=== PATIENT | female | born 1945 | race Caucasian/White ===

== ENCOUNTER 2022-02-19 14:38 | Emergency (ER) | payer OTHER ==
[2022-02-19 16:48] LABS: Absolute Lymphocytes (CBC) 1.3 K/uL (0.7-4.9); Hematocrit 35.8 % (36.0-45.0); Lymphocytes % 36.3 % (15.3-44.8); MCV 96.7 fL (80-100); MPV 8.6 fL (7.6-11.3)
[2022-02-19 17:05] LABS: Bilirubin Direct 0.1 mg/dL (0-0.2); Bilirubin Total 0.2 mg/dL (0.2-1.0); Potassium 3.9 mmol/L (3.5-5.1); Protein, Total 6.9 g/dL (6.4-8.2); Troponin High Sensitivity 20.8 pg/mL (<58.9)
[2022-02-19 17:09] LABS: Urine Blood Negative (Negative); Urine Glucose 3+ (Negative); Urine Protein 2+ (Negative); Urine Specific Gravity 1.015 (1.005-1.030); Urine pH 5.5 (5.0-7.0)
[2022-02-19 17:26] LABS: Urine Bacteria None Seen /HPF (<20); Urine Mucus Slight /HPF (None Seen); Urine RBC <5 /HPF (None Seen)
[2022-02-19] MEDS ORDERED: NA CHLORIDE 0.9% 1,000 ML ONE (17:37)
[2022-02-19] MEDS ORDERED: INSULIN -REGULAR HUMAN 50 UNIT/0.5 ML ML ONE (17:37)
--- NOTE | 2022-02-19 18:01 | RAD REPORT ---
EXAM DESCRIPTION: RAD - Chest Single View - 02/19/2022 5:22 pm CLINICAL HISTORY: weakness COMPARISON: No comparisons FINDINGS: Lines: None. Lungs: No evidence of edema or pneumonia. Pleural: No significant pleural effusions or pneumothorax. Cardiac: The heart size is within normal limits. Mediastinum: Within normal limits. Bones: No acute fractures. Other: None IMPRESSION: No acute cardiopulmonary disease.
--- NOTE | 2022-02-19 18:24 | ER ---
Nurse's Notes [facility] Name: Loulou Spencer Age: 76 yrs Sex: Female : 1945 Arrival Date: 02/19/2022 Time: 14:44 Bed 16 Private MD: Alia Medrano Diagnosis: Hyperglycemia, unspecified Presentation: 02/19 15:16 Chief complaint: Patient states: "I just don't feel good". Pt c/o generalized weakness. aa5 Pt's states "she was just released from another hospital a couple days ago for trouble breathing, the hospital changed all her medications and her doctor said to bring her here to get everything straighten out". Coronavirus screen: Client reports previous positive COVID test result. Ebola Screen: Patient denies travel to an Ebola-affected area in the 21 days before illness onset. Initial Sepsis Screen: Does the patient meet any 2 criteria? HR > 90 bpm. Does the patient have a suspected source of infection? No. Patient's initial sepsis screen is negative. Risk Assessment: Do you want to hurt yourself or someone else? Patient reports no desire to harm self or others. Onset of symptoms was February 2022. 15:16 Acuity: EVY 3 aa5 15:16 Method Of Arrival: Wheelchair aa5 Historical: - Allergies: 15:22 Sulfa (Sulfonamide Antibiotics); aa5 - PMHx: 15:22 Diabetes mellitus; Hypertensive disorder; Neuropathy; aa5 - Immunization history:: Adult Immunizations unknown. - Social history:: Smoking status: Patient denies any tobacco usage or history of. Assessment: 16:00 General: Appears uncomfortable, Behavior is anxious. Pain: Denies pain. mb9 16:00 Neuro: Ness Agitation-Sedation Scale (RASS): 0 - Alert and Calm Level of mb9 Consciousness is awake, alert, obeys commands, Oriented to person, place, time, situation, Appropriate for age. Neuro: Reports weakness. Cardiovascular: Heart tones S1 S2 present Rhythm is regular. Respiratory: Airway is patent Respiratory effort is even, unlabored, Respiratory pattern is regular, symmetrical, Breath sounds are clear bilaterally. GI: Abdomen is flat, non-distended. : No signs and/or symptoms were reported regarding the genitourinary system. EENT: No signs and/or symptoms were reported regarding the EENT system. Derm: Skin is pink, warm \\T\\ dry. Musculoskeletal: Capillary refill < 3 seconds, is brisk, Range of motion: intact in all extremities. 17:10 Reassessment: No changes from previously documented assessment. Patient and/or family mb9 updated on plan of care and expected duration. Pain level reassessed. Patient is alert, oriented x 3, equal unlabored respirations, skin warm/dry/pink. 18:24 Reassessment: No changes from previously documented assessment. Patient and/or family mb9 updated on plan of care and expected duration. Pain level reassessed. Patient is alert, oriented x 3, equal unlabored respirations, skin warm/dry/pink. 18:50 Reassessment: Patient denies pain at this time. Patient states feeling better. Patient mb9 states symptoms have improved. Vital Signs: 15:16 BP 153 / 49; Pulse 92; Resp 20 S; Temp 98.2(TE); Pulse Ox 95% on R/A; Weight 113.4 kg aa5 (R); Height 5 ft. 4 in. (162.56 cm) (R); 17:10 BP 158 / 52; Pulse 91; Resp 16; Pulse Ox 96% on R/A; Pain 0/10; mb9 17:45 BP 192 / 72; Pulse 97; Resp 16; Pulse Ox 96% on R/A; mb9 18:50 BP 150 / 52; mb9 15:16 Body Mass Index 42.91 (113.40 kg, 162.56 cm) aa5 ED Course: 14:44 Patient arrived in ED. am2 14:45 Alia Medrano MD is Private Physician. am2 15:16 Arm band placed on. aa5 15:22 Triage completed. aa5 15:35 Placed in gown. Bed in low position. Call light in reach. Side rails up X 1. Client mb9 placed on continuous cardiac and pulse oximetry monitoring. NIBP monitoring applied. ekg monitor on. Door closed. Noise minimized. Warm blanket given. 16:00 Cyril Jennings MD is Attending Physician. sp3 16:22 Vidya Vegas RN is Primary Nurse. mb9 16:45 Inserted saline lock: 22 gauge in left antecubital area, using aseptic technique. Blood mb9 collected. 17:00 EKG done, by ED staff, reviewed by Cyril Jennings MD. mb9 17:24 XRAY Chest (1 view) In Process Unspecified. EDMS 18:51 IV discontinued, intact, bleeding controlled, No redness/swelling at site. Pressure mb9 dressing applied. Administered Medications: 17:38 Drug: Insulin Regular Human 10 units {Co-Signature: [email or web address] (Nereida Morse RN).} Route: IVP; mb9 Site: left antecubital; 17:51 Follow up: Response: No adverse reaction mb9 17:46 Drug: NS 0.9% 1000 ml Route: IV; Rate: 1 bolus; Site: left antecubital; mb9 Point of Care Testing: Blood Glucose: 15:22 Blood Glucose: 388 mg/dL; aa5 Ranges: Outcome: 18:24 Discharge ordered by . sp3 18:50 Discharged to home via ambulance. mb9 18:50 Condition: stable 18:50 Discharge instructions given to patient, Instructed on discharge instructions, follow up and referral plans. Demonstrated understanding of instructions, follow-up care. 18:51 Patient left the ED. mb9 Signatures: Dispatcher [employer] EDMS Kierra Pate RN RN aa5 Shantell Vinson am2 Cyril Jennings MD MD sp3 Vidya Vegas, RN RN mb9 Nereida Morse RN jh5 Corrections: (The following items were deleted from the chart) 15:24 15:16 Chief complaint: Patient states: "I just don't feel good". Pt c/o generalized aa5 weakness. Pt's states "she was just released from another hospital a couple days ago for trouble breathing" aa5 17:32 14:40 Placed in gown. Bed in low position. Call light in reach. Side rails up X 1. mb9 mb9 17:32 14:40 Client placed on continuous cardiac and pulse oximetry monitoring. NIBP mb9 monitoring applied. ekg monitor on. mb9 17:32 14:40 Door closed. Noise minimized. Warm blanket given. mb9 mb9
--- NOTE | 2022-02-19 18:24 | EDPHYS ---
Physician Documentation [facility] Name: Loulou Spencer Age: 76 yrs Sex: Female : 1945 Arrival Date: 02/19/2022 Time: 14:44 Bed 16 Private MD: Alia Medrano ED Physician Cyril Jennings HPI: 02/19 16:33 This 76 yrs old Female presents to ER via Wheelchair with complaints of blood sugar sp3 problem, General Weakness. 16:33 76-year-old female with history of hypertension, diabetes, recent and current COVID-19 sp3 infection presents referred by her nurse practitioner for "blood sugar and diabetes check" after blood sugar levels greater than 300 at home. Patient was recently admitted to [facility] for respiratory symptoms and discharged 2 days ago. She states that they may have changed her diabetes medications. Her only complaint now is generalized weakness and "not feeling well". She denies current fever, headache, neck pain, chest pain, shortness of breath, abdominal pain, nausea, vomiting, diarrhea, syncope, focal neurodeficit, or any other aspect of ROS at this time.. Historical: - Allergies: 15:22 Sulfa (Sulfonamide Antibiotics); aa5 - PMHx: 15:22 Diabetes mellitus; Hypertensive disorder; Neuropathy; aa5 - Immunization history:: Adult Immunizations unknown. - Social history:: Smoking status: Patient denies any tobacco usage or history of. ROS: 16:36 Constitutional: Negative for fever, chills, and weight loss, Eyes: Negative for injury, sp3 pain, redness, and discharge, ENT: Negative for injury, pain, and discharge, Cardiovascular: Negative for chest pain, palpitations, and edema, Respiratory: Negative for shortness of breath, cough, wheezing, and pleuritic chest pain, Abdomen/GI: Negative for abdominal pain, nausea, vomiting, diarrhea, and constipation, MS/Extremity: Negative for injury and deformity, Skin: Negative for injury, rash, and discoloration, Psych: Negative for depression, anxiety, suicide ideation, homicidal ideation, and hallucinations, Allergy/Immunology: Negative for hives, rash, and allergies, Endocrine: Negative for neck swelling, polydipsia, polyuria, polyphagia, and marked weight changes. 16:36 All other systems are negative. Exam: 16:36 Constitutional: This is a well developed, well nourished patient who is awake, alert, sp3 and in no acute distress. Head/Face: Normocephalic, atraumatic. Eyes: Pupils equal round and reactive to light, extra-ocular motions intact. Lids and lashes normal. Conjunctiva and sclera are non-icteric and not injected. Cornea within normal limits. Periorbital areas with no swelling, redness, or edema. Neck: Trachea midline, no thyromegaly or masses palpated, and no cervical lymphadenopathy. Supple, full range of motion without nuchal rigidity, or vertebral point tenderness. No Meningismus. Chest/axilla: Normal chest wall appearance and motion. Nontender with no deformity. No lesions are appreciated. Cardiovascular: Regular rate and rhythm with a normal S1 and S2. No gallops, murmurs, or rubs. Normal PMI, no JVD. No pulse deficits. Respiratory: Lungs have equal breath sounds bilaterally, clear to auscultation and percussion. No rales, rhonchi or wheezes noted. No increased work of breathing, no retractions or nasal flaring. Abdomen/GI: Soft, non-tender, with normal bowel sounds. No distension or tympany. No guarding or rebound. No evidence of tenderness throughout. Skin: Warm, dry with normal turgor. Normal color with no rashes, no lesions, and no evidence of cellulitis. MS/ Extremity: Pulses equal, no cyanosis. Neurovascular intact. Full, normal range of motion. 16:36 Neuro: Normal neurological exam. Patient has mild shaking from time to time. She appears overall fatigued but has no focal neurodeficit.. 17:29 ECG was reviewed by the Attending Physician. Demonstrates normal sinus rhythm at 87 bpm sp3 normal intervals, nonspecific left-sided fascicular block, nonspecific diffuse ST/T changes without evidence of acute ischemia. QTC is noted to be 490 Vital Signs: 15:16 BP 153 / 49; Pulse 92; Resp 20 S; Temp 98.2(TE); Pulse Ox 95% on R/A; Weight 113.4 kg aa5 (R); Height 5 ft. 4 in. (162.56 cm) (R); 17:10 BP 158 / 52; Pulse 91; Resp 16; Pulse Ox 96% on R/A; Pain 0/10; mb9 17:45 BP 192 / 72; Pulse 97; Resp 16; Pulse Ox 96% on R/A; mb9 18:50 BP 150 / 52; mb9 15:16 Body Mass Index 42.91 (113.40 kg, 162.56 cm) aa5 MDM: 16:29 Patient medically screened. sp3 16:37 Data reviewed: vital signs, nurses notes, lab test result(s), EKG, radiologic studies. sp3 ED course: 76-year-old female with hyperglycemia and generalized weakness. Differential diagnosis includes hypoglycemia, dehydration, DKA, infectious process leading to metabolic derangement including glucose, ACS, pneumonia, UTI, continued COVID-19 symptoms, secondary bacterial infection, among others. We will cast a broad net including chest x-ray, laboratory values, EKG, urine analysis. Disposition pending work-up and final diagnosis as well as patient course. Possible admission as noted.. 18:23 ED course: Sugar down to 247 and will continue to go down his insulin continues to take sp3 effect along with IV fluids. Patient will be safely discharged once IV fluids are complete.. 02/19 15:33 Order name: Glucose, Ancillary Testing; Complete Time: 17:30 EDAK 02/19 16:07 Order name: Basic Metabolic Panel; Complete Time: 17:30 3 02/19 16:07 Order name: CBC with Diff; Complete Time: 17:30 3 02/19 16:07 Order name: LFT's; Complete Time: 17:30 [facility] 02/19 16:07 Order name: Magnesium; Complete Time: 17:30 [facility] 02/19 16:07 Order name: Troponin HS; Complete Time: 17:30 3 02/19 16:07 Order name: XRAY Chest (1 view); Complete Time: 18:18 3 02/19 16:07 Order name: EKG; Complete Time: 16:08 3 02/19 16:07 Order name: Cardiac monitoring; Complete Time: 16:22 3 02/19 16:07 Order name: Urine Microscopic Only; Complete Time: 17:30 3 02/19 17:09 Order name: Urine Dipstick-Ancillary; Complete Time: 17:30 EDMS 02/19 18:34 Order name: Glucose, Ancillary Testing EDAK 02/19 16:07 Order name: EKG - Nurse/Tech; Complete Time: 17:12 sp3 02/19 16:07 Order name: IV Saline Lock; Complete Time: 17:12 sp3 02/19 16:07 Order name: Labs collected and sent; Complete Time: 17:12 sp3 02/19 16:07 Order name: O2 Per Protocol; Complete Time: 16:22 sp3 02/19 16:07 Order name: O2 Sat Monitoring; Complete Time: 16:22 sp3 02/19 16:07 Order name: Urine Dipstick-Ancillary (obtain specimen); Complete Time: 17:12 sp3 Administered Medications: 17:38 Drug: Insulin Regular Human 10 units {Co-Signature: [email or web address] (Nereida Morse RN).} Route: IVP; 9 Site: left antecubital; 17:51 Follow up: Response: No adverse reaction [facility] 17:46 Drug: NS 0.9% 1000 ml Route: IV; Rate: 1 bolus; Site: left antecubital; 9 Point of Care Testing: Blood Glucose: 15:22 Blood Glucose: 388 mg/dL; aa5 Ranges: Critical Glucose Levels:Adult <50 mg/dl or >400 mg/dl <40 mg/dl or >180 mg/dl Disposition Summary: 02/19/22 18:24 Discharge Ordered Location: Home sp3 Condition: Stable sp3 Diagnosis - Hyperglycemia, unspecified sp3 Followup: sp3 - With: Private Physician - When: Upon discharge from the Emergency Department - Reason: Further diagnostic work-up Discharge Instructions: - Discharge Summary Sheet sp3 - Hyperglycemia sp3 Forms: - Medication Reconciliation Form sp3 - Thank You Letter sp3 - Antibiotic Education sp3 - Prescription Opioid Use sp3 Signatures: Dispatcher [employer] Kierra Rios, RN RN aa5 Cyril Jennings MD MD sp3 Gem Porter PA-C PAVidya Bae RN RN mb9 Nereida Morse RN jh5
[2022-02-19 19:04] VITALS: TEMP 98.2
[2022-02-19 19:10] VITALS: O2SAT 96
[2022-02-19 19:16] VITALS: BP 150/52
--- NOTE | 2022-02-20 14:23 | EKG ---
Test Date: 2022-02-19 Test Time: 17:00:29 Paper Sales Manager: MB MEASUREMENT RESULTS: Intervals: Rate: 87 SD: 152 QRSD: 118 QT: 408 QTc: 490 [place]: P: 63 SD: 152 QRS: -81 T: 44 INTERPRETIVE STATEMENTS: Normal sinus rhythm Pulmonary disease pattern Right bundle branch block Left anterior fascicular block Bifascicular block Voltage criteria for left ventricular hypertrophy Abnormal ECG Compared to ECG 11/02/1991 08:24:00 Right bundle-branch block now present Left anterior fascicular block now present Bifascicular block now present Left ventricular hypertrophy now present Electronically Signed On 02-20-22 14:21:20 CORRECTIVE THERAPY AIDE TEACHER by Merrick Slaughter
== END 2022-02-19 18:51 | disposition home or self-care (01) ==
LOC: ER 14:38
DX: E11.65 Type 2 diabetes mellitus with hyperglycemia (principal); I10 Essential (primary) hypertension; Z88.2 Allergy status to sulfonamides
CPT/HCPCS: 93005; 85025; 80048; 36415; 83735; 82947 ×2; 80076; 84484; 71045; 96374; 99284; J1815; J7030; 81003; 81015

== ENCOUNTER 2022-03-21 10:28 | Emergency (ER) | payer OTHER ==
[2022-03-21 11:36] LABS: Absolute Lymphocytes (CBC) 1.4 K/uL (0.7-4.9); Hematocrit 36.5 % (36.0-45.0); Lymphocytes % 26.2 % (15.3-44.8); MCV 97.3 fL (80-100); MPV 8.9 fL (7.6-11.3); Protime INR 0.96; RBC Red Blood Cell Count 3.75 M/uL (3.86-4.86)
[2022-03-21 11:55] LABS: Albumin 3.1 g/dL (3.4-5.0); Bilirubin Direct 0.1 mg/dL (0-0.2); Bilirubin Total 0.3 mg/dL (0.2-1.0); Magnesium 1.7 mg/dL (1.6-2.4); Potassium 3.6 mmol/L (3.5-5.1); Protein, Total 6.8 g/dL (6.4-8.2); Troponin High Sensitivity 29.2 pg/mL (<58.9)
[2022-03-21 12:44] LABS: SARS-COV-2 RT PCR POSITIVE (NEGATIVE)
--- NOTE | 2022-03-21 12:44 | RAD REPORT ---
EXAM DESCRIPTION: Ines Single View03/21/2022 12:18 pm CLINICAL HISTORY: Shortness of breath COMPARISON: February 2022 FINDINGS: The lungs appear clear of acute infiltrate. The heart is normal size IMPRESSION: No acute abnormalities displayed
--- NOTE | 2022-03-21 12:46 | RAD REPORT ---
EXAM DESCRIPTION: CT - Chest For Pe Angio - 03/21/2022 12:25 pm CLINICAL HISTORY: Chest pain COMPARISON: 2017 TECHNIQUE: Dynamically enhanced axial 3 mm thick images of the chest were obtained during administra tion of 100 mL Isovue 370 IV contrast. Coronal and oblique reconstruction images were generated and r eviewed. Exam utilizes a protocol for optimal evaluation of pulmonary arterial tree. Maximum intensity projections 3D imaging was utilized All CT scans are performed using dose optimization technique as appropriate and may include automated exposure control or mA/KV adjustment according to patient size. FINDINGS: A pulmonary embolus is not seen. A thoracic aortic aneurysm is not noted. A pleural effusion is not seen. A pericardial effusion is not seen. A lung consolidation is not present. Calcified lung granulomas are present IMPRESSION: Negative for a pulmonary embolism.
--- NOTE | 2022-03-21 13:21 | EDPHYS ---
Physician Documentation [facility] Name: Loulou Spencer Age: 76 yrs Sex: Female : 1945 Arrival Date: 03/21/2022 Time: 10:31 Bed 8 Private MD: Alia Medrano ED Physician Nestor Flores HPI: 03/21 10:52 This 76 yrs old Female presents to ER via Ambulatory with complaints of Chest Pain, jmm Shortness Of Breath, Hand shaking. 10:52 The patient or guardian reports cough. Onset: The symptoms/episode began/occurred jmm gradually, last night. Modifying factors: The symptoms are alleviated by nothing. the symptoms are aggravated by nothing. Associated signs and symptoms: Pertinent positives: chest pain. This is a 76-year-old female with history diabetes mellitus, hypertension, hyperlipidemia the presents emerged part with complaints of body aches, cough beginning last night. Patient states also having chest pain. Denies any shortness of breath, vomiting.. Historical: - Allergies: 10:49 Sulfa (Sulfonamide Antibiotics); aa5 - PMHx: 10:49 diabetes mellitus; Hypertensive disorder; neuropathy; Hypercholesterolemia; aa5 - Immunization history:: Adult Immunizations up to date. - Social history:: Smoking status: Patient denies any tobacco usage or history of. ROS: 10:52 Constitutional: Positive for body aches. jmm 10:52 Respiratory: Positive for cough. 10:52 All other systems are negative. Exam: 10:52 Constitutional: This is a well developed, well nourished patient who is awake, alert, jmm and in no acute distress. Head/Face: atraumatic. Eyes: EOMI, no conjunctival erythema appreciated ENT: Moist Mucus Membranes Neck: Trachea midline, Supple Chest/axilla: Normal chest wall appearance and motion. Cardiovascular: Regular rate and rhythm. No edema appreciated Respiratory: Normal respirations, no respiratory distress appreciated Abdomen/GI: Non distended Back: Normal ROM Skin: General appearance color normal MS/ Extremity: Moves all extremities, no obvious deformities appreciated, no edema noted to the lower extremities Neuro: Awake and alert Psych: Behavior is normal, Mood is normal, Patient is cooperative and pleasant 12:05 ECG was reviewed by the Attending Physician. [facility] Vital Signs: 10:49 BP 133 / 54; Pulse 89; Resp 20 S; Temp 97.3(TE); Pulse Ox 100% on R/A; Weight 113.4 kg aa5 (R); 11:54 BP 133 / 45; Pulse 88; Resp 18; Pulse Ox 97% ; hb 12:37 BP 143 / 57; Pulse 69; Resp 17; Pulse Ox 98% on R/A; hb MDM: 10:52 Patient medically screened. [facility] 13:19 Data reviewed: vital signs, nurses notes. I considered the following discharge [facility] prescriptions or medication management in the emergency department Medications were administered in the Emergency Department. See MAR. Independent interpretation of the following test(s) in the Emergency Department X-Ray: My interpretation is No infiltrate appreciated. Counseling: I had a detailed discussion with the patient and/or guardian regarding: the historical points, exam findings, and any diagnostic results supporting the discharge/admit diagnosis, lab results, radiology results, the need for outpatient follow up, to return to the emergency department if symptoms worsen or persist or if there are any questions or concerns that arise at home. ED course: Patient is alert nontoxic in appearance in the ED. No signs respiratory distress. Patient advised follow-up PCP and otherwise given strict return precautions. Patient understood agrees plan of care.. 03/21 10:53 Order name: Basic Metabolic Panel; Complete Time: 12:00 [facility] 03/21 10:53 Order name: CBC with Diff; Complete Time: 12:00 [facility] 03/21 10:53 Order name: LFT's; Complete Time: 12:00 [facility] 03/21 10:53 Order name: Magnesium; Complete Time: 12:00 [facility] 03/21 10:53 Order name: NT PRO-BNP; Complete Time: 12:00 [facility] 03/21 10:53 Order name: PT-INR; Complete Time: 11:42 [facility] 03/21 10:53 Order name: Troponin HS; Complete Time: 12:00 [facility] 03/21 10:53 Order name: XRAY Chest (1 view); Complete Time: 12:45 [facility] 03/21 10:53 Order name: EKG; Complete Time: 10:54 [facility] 03/21 10:53 Order name: COVID-19/FLU A+B/RSV; Complete Time: 12:45 [facility] 03/21 10:53 Order name: Lactate w/ 2H reflex if indic.; Complete Time: 12:00 [facility] 03/21 10:53 Order name: Blood Culture Adult (2) [facility] 03/21 12:00 Order name: CT Chest For PE Angio; Complete Time: 12:50 [facility] 03/21 10:53 Order name: Cardiac monitoring; Complete Time: 11:57 [facility] 03/21 10:53 Order name: EKG - Nurse/Tech; Complete Time: 12:16 [facility] 03/21 10:53 Order name: IV Saline Lock; Complete Time: 11:57 [facility] 03/21 10:53 Order name: Labs collected and sent; Complete Time: :57 [facility] 03/21 10:53 Order name: O2 Per Protocol; Complete Time: :57 [facility] 03/21 10:53 Order name: O2 Sat Monitoring; Complete Time: :57 [facility] EC:05 HI interval is normal. QRS interval is normal. QT interval is normal. T waves are jmm Inverted in leads III, V1. No ST changes noted. Reviewed by me. Administered Medications: 13:46 Drug: Insulin Regular Human 10 units {Co-Signature: ll1 (Radha Marroquin RN).} Route: IVP; Site: Other; Disposition: 17:48 Co-signature as Attending Physician, Nestor Flores MD I reviewed the patient's care rt provided by the Advanced Practice Provider and agree with the diagnosis and treatment plan. Disposition Summary: 03/21/22 13:21 Discharge Ordered Location: Home [facility] Condition: Stable [facility] Diagnosis - Coronavirus infection, unspecified [facility] Followup: [facility] - With: Alia Medrano MD - When: 2 - 3 days - Reason: Recheck today's complaints, Continuance of care, Re-evaluation by your physician Discharge Instructions: - Discharge Summary Sheet [facility] - COVID-19 [facility] Forms: - Medication Reconciliation Form [facility] - Thank You Letter [facility] - Antibiotic Education [facility] - Prescription Opioid Use [facility] Prescriptions: - albuterol sulfate 90 mcg/actuation Inhalation HFA aerosol inhaler - inhale 2 puff by INHALATION route every 4 hours; 1 Pump; Refills: 0, Product [facility] Selection Permitted Signatures: Dispatcher [employer] EDDavonte Estrada PA PA [facility] Kierra Pate, RN RN aa5 Barbara Yepez RN RN hb Nestor Flores MD MD rt Radha Marroquin RN ll1
--- NOTE | 2022-03-21 13:21 | ER ---
Nurse's Notes [facility] Name: Loulou Spencer Age: 76 yrs Sex: Female : 1945 Arrival Date: 03/21/2022 Time: 10:31 Bed 8 Private MD: Alia Medrano Diagnosis: Coronavirus infection, unspecified Presentation: 03/21 10:49 Chief complaint: Patient states: cough, SOB, generalized weakness, and chest pain that aa5 began yesterday. Coronavirus screen: cough unrelated to allergies, shortness of breath. Ebola Screen: Patient denies travel to an Ebola-affected area in the 21 days before illness onset. Initial Sepsis Screen: Does the patient meet any 2 criteria? No. Patient's initial sepsis screen is negative. Does the patient have a suspected source of infection? No. Patient's initial sepsis screen is negative. Risk Assessment: Do you want to hurt yourself or someone else? Patient reports no desire to harm self or others. Onset of symptoms was March 2022. 10:49 Method Of Arrival: Ambulatory aa5 10:49 Acuity: EVY 3 aa5 Historical: - Allergies: 10:49 Sulfa (Sulfonamide Antibiotics); aa5 - PMHx: 10:49 diabetes mellitus; Hypertensive disorder; neuropathy; Hypercholesterolemia; aa5 - Immunization history:: Adult Immunizations up to date. - Social history:: Smoking status: Patient denies any tobacco usage or history of. Screenin:54 [facility] ED Fall Risk Assessment (Adult) Score/Fall Risk Level 3 or more points = High hb Risk Oriented to surroundings, Maintained a safe environment, Educated pt \T\ family on fall prevention, incl call for assistance when getting out of bed. Abuse screen: Denies threats or abuse. Denies injuries from another. Nutritional screening: No deficits noted. Tuberculosis screening: No symptoms or risk factors identified. Assessment: 11:54 General: Appears in no apparent distress. Behavior is calm, cooperative. Pain: Denies hb pain. Neuro: Level of Consciousness is awake, alert, obeys commands, Oriented to person, place, time, situation. Cardiovascular: Patient's skin is warm and dry. Respiratory: Respiratory effort is even, unlabored, Respiratory pattern is regular, symmetrical. GI: No signs and/or symptoms were reported involving the gastrointestinal system. : No signs and/or symptoms were reported regarding the genitourinary system. EENT: No signs and/or symptoms were reported regarding the EENT system. Derm: Skin is pink, warm \T\ dry. Musculoskeletal: No signs and/or symptoms reported regarding the musculoskeletal system. 13:00 Reassessment: Patient appears in no apparent distress at this time. Patient and/or hb family updated on plan of care and expected duration. Pain level reassessed. Patient is alert, oriented x 3, equal unlabored respirations, skin warm/dry/pink. Vital Signs: 10:49 BP 133 / 54; Pulse 89; Resp 20 S; Temp 97.3(TE); Pulse Ox 100% on R/A; Weight 113.4 kg aa5 (R); 11:54 BP 133 / 45; Pulse 88; Resp 18; Pulse Ox 97% ; hb 12:37 BP 143 / 57; Pulse 69; Resp 17; Pulse Ox 98% on R/A; hb ED Course: 10:31 Patient arrived in ED. mr 10:31 Alia Medrano MD is Private Physician. mr 10:32 Davonte Kwan PA is PHCP. jmm 10:32 Nestor Flores MD is Attending Physician. jmm 10:49 Arm band placed on. aa5 10:50 Triage completed. aa5 11:04 Barbara Yepez, KATELYN is Primary Nurse. hb 11:22 Inserted saline lock: 20 gauge in left antecubital area, using aseptic technique. Blood hb collected. 12:20 XRAY Chest (1 view) In Process Unspecified. EDMS 12:27 CT Chest For PE Angio In Process Unspecified. EDMS 13:00 Patient has correct armband on for positive identification. hb 13:00 No provider procedures requiring assistance completed. IV discontinued, intact, hb bleeding controlled, No redness/swelling at site. 13:20 Alia Medrano MD is Referral Physician. [facility] Administered Medications: 13:46 Drug: Insulin Regular Human 10 units {Co-Signature: ll1 (Radha Marroquin RN).} Route: IVP; hb Site: Other; Medication: 13:00 VIS not applicable for this client. hb Outcome: 13:00 Discharged to home via wheelchair, with family. hb 13:00 Condition: stable 13:00 Discharge instructions given to patient, Instructed on discharge instructions, follow up and referral plans. medication usage, Demonstrated understanding of instructions, follow-up care, medications, Prescriptions given X 1. 13:21 Discharge ordered by MD. mckeon 13:48 Patient left the ED. hb Signatures: Dispatcher [employer] EDMS Davonte Kwan PA PA jmm Rivera, Mary mr RioKierra, RN RN aa5 Barbara Yepez RN RN Radha Marroquin RN ll1
[2022-03-21] MEDS ORDERED: INSULIN -REGULAR HUMAN 50 UNIT/0.5 ML ML ONE (13:43)
[2022-03-21 13:53] VITALS: TEMP 97.3
[2022-03-21 13:55] VITALS: BP 143/57; O2SAT 98
== END 2022-03-21 13:48 | disposition home or self-care (01) ==
LOC: ER 10:28
DX: U07.1 COVID-19 (principal); I10 Essential (primary) hypertension; E11.9 Type 2 diabetes mellitus without complications; Z88.2 Allergy status to sulfonamides
CPT/HCPCS: 87040 ×2; 85025; 80048; 36415; 83735; 85610; 80076; 83605; 84484; 83880; 0241U; 71275; 71045; 96374; 99284; Q9967; J1815; 93005

== ENCOUNTER 2022-05-26 09:05 | Inpatient (IN) | payer OTHER ==
--- OUTSIDE RECORDS SUMMARY | 2022-05-26 09:44 | XMS REPORT | Continuity of Care Document ---
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 (disorder) (disorder) Active 06/05/2015 Problem 05/17/2022 [facility] Amnesia Amnesia Problem Active 2022-05-17 Me moria (finding) (finding) 12:54:04 l Active Noah Problem 05/17/2022 [facility] 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 12:54:04 l s s [place] (disorder) (disorder) Active Problem 05/17/2022 [facility] Diabetes Diabetes Problem Active 2022-05-17 Memoria mellitus mellitus 12:54:04 l (disorder) (disorder) He rmann Active Problem 05/17/2022 [facility] Dizziness Dizziness Problem Active 2022-05-17 Memoria (finding) (finding) 12:54:04 l Active Noah Problem 05/17/2022 [facility] Dysarthria Dysarthri Problem Active 2022-05-17 Memoria (finding) a 12:54:04 l (finding) Naoh Active Problem 05/17/2022 [facility] Hyperchole Hyperchol Problem Active 2022-05-17 Memoria sterolemia esterolemi 12:54:04 l (disorder) a Oscar n (disorder) Active Problem 05/17/2022 [facility] Hypertensi Hypertens Problem Active 2022-05-17 Memoria ve davi 12:54:04 l disorder, disorder, Herm promise systemic systemic arterial arterial (disorder) (disorder) Active Problem 05/17/2022 [facility] Morbid Morbid Problem Active 2022-05-17 Robert cheli obesity obesity 12:54:04 l (disorder) (disorder) He rmann Active Problem 05/17/2022 [facility] Neuropathy Problem Active 2022-05-17 M emoria (disorder) Neuropathy 12:54:04 l (disorder) Oscar n Active Problem 05/17/2022 [facility] Orthostati Orthostat Problem Active 2022-05-17 Memoria c ic 12:54:04 l hypotensio hypotensio He rmann n n (disorder) (disorder) Active Problem 05/17/2022 [facility] Tremor Tremor Problem Active 2022-05-17 Rboert cheli (finding) (finding) 12:54:04 l Active [place] Problem 05/17/2022 [facility] Allergies, Adverse Reactions, Alerts Allergy Allergy Status Severity Reaction(s) Onset Inactive Treating Comm ents Source Name Type Date Date Clinician sulfa sulfa Active Memoria drugs drugs [facility] Social History Smoking Status Start Date Stop Date Source Tobacco smoking status [facility] Medications Ordered Filled Start Stop Current Ordering Indication Dosage Frequency Signature Comments Components Source Medication Medication Date Date Medication? Clinician (SIG) Name Name furosemide Yes TAKE 1 Memor ia 20 mg oral 4-05 TABLET BY l tablet 19:42: MOUTH IN Noah 00 THE MORNING AND 1 IN THE EVENING cyclobenzap Yes TAKE 1 Robert cheli rine 5 mg 4-05 TABLET BY l oral tablet 19:42: MOUTH Ally 00 THREE TIMES DAILY NEEDED FOR MUSCLE SPASMS FOR UP TO 10 DAYS furosemide Yes TAKE 1 Memor ia 20 mg oral 4-05 TABLET BY l tablet 19:42: MOUTH IN [place] 00 THE MORNING AND 1 IN THE EVENING cyclobenzap Yes TAKE 1 Robert cheli rine 5 mg 4-05 TABLET BY l oral tablet 19:42: MOUTH Ally nn 00 THREE TIMES DAILY NEEDED FOR MUSCLE SPASMS FOR UP TO 10 DAYS gabapentin Yes See Memoria 600 mg oral 1-03 Instructio l tablet 17:16: ns, 02/10 [place] 00 tab PO BID 90 day, # 90 tab, 1 Refill(s), Pharmacy: [facility], 162.56, cm, 11/13/21 14:00:00 CDT, Height, 111.818, kg, 11/13/21 14:00:00 CDT, Weight gabapentin Yes See Memoria 600 mg oral 1-03 Instructio l tablet 17:16: ns, 02/10 [place] 00 tab PO BID 90 day, # 90 tab, 1 Refill(s), Pharmacy: [facility], 162.56, cm, 11/13/21 14:00:00 CDT, Height, 111.818, kg, 11/13/21 14:00:00 CDT, Weight primidone 2021-02 Yes See Memoria 50 mg oral 1-15 Instructio l tablet 16:45: ns, 3 tab Oscar n 00 PO BID, # 540 tab, 1 Refill(s), Pharmacy: [facility], 162.56, cm, 11/13/21 14:00:00 CDT, Height, 111.818, kg, 11/13/21 14:00:00 CDT, Weight primidone 2021-02 Yes See Memoria 50 mg oral 1-15 Instructio l tablet 16:45: ns, 3 tab Oscar n 00 PO BID, # 540 tab, 1 Refill(s), Pharmacy: [facility], 162.56, cm, 11/13/21 14:00:00 CDT, Height, 111.818, kg, 11/13/21 14:00:00 CDT, Weight hydrochloro 0 Yes TAKE 1 Robert cheli thiazide-lo 8-23 TABLET BY l sartan 12.5 16:07: MOUTH ONCE Noah mg-50 mg 00 DAILY oral tablet hydrochloro 0 Yes TAKE 1 Robert cheli thiazide-lo 8-23 TABLET BY ac rand 12.5 16:07: MOUTH ONCE [place] mg-50 mg 00 DAILY oral tablet primidone 0 Yes See Memoria 50 mg oral 4-06 Instructio l tablet 17:17: ns, 3 tab Oscar n 00 PO BID, # 540 tab, 1 Refill(s), Pharmacy: [facility], 160.02, cm, 05/15/21 11:51:00 CDT, Height, 115.966, kg, 05/15/21 11:51:00 CDT, Weight primidone 0 Yes See Memoria 50 mg oral 4-06 Instructio l tablet 17:17: ns, 3 tab Oscar n 00 PO BID, # 540 tab, 1 Refill(s), Pharmacy: [facility], 160.02, cm, 05/15/21 11:51:00 CDT, Height, 115.966, kg, 05/15/21 11:51:00 CDT, Weight Vitamin C 2021-0 Yes Daily, 0 Robert cheli 1-06 Refill(s) l 16:44: [place] 00 B-Complex 2021-0 Yes PO, Daily, Me moria 50 oral 1-06 0 l tablet 16:44: Refill(s) Oscar n 00 Zinc 2021-0 Yes 140 mg, Memoria 1-06 PO, Daily, l 16:44: 0 Noah 00 Refill(s) Vitamin C 2021-0 Yes Daily, 0 Robert cheli 1-06 Refill(s) l 16:44: [place] 00 B-Complex 2021-0 Yes PO, Daily, Me moria 50 oral 1-06 0 l tablet 16:44: Refill(s) Oscar n 00 Zinc 2021-0 Yes 140 mg, Memoria 1-06 PO, Daily, l 16:44: 0 Noah 00 Refill(s) D3 2021-0 Yes PO, Daily, Memoria 1-06 0 l 16:43: Refill(s) [place] 00 D3 2021-0 Yes PO, Daily, Memoria 1-06 0 l 16:43: Refill(s) primidone 2020-0 Yes 0 Memoria 50 mg oral 7-06 Refill(s) l tablet 15:26: atorvastati 2020-0 Yes 0 Memori a n 40 mg 7-06 Refill(s) l oral tablet 15:26: Oscar n primidone 2020-0 Yes 0 Memoria 50 mg oral 7-06 Refill(s) l tablet 15:26: atorvastati 2020-0 Yes 0 Memori a n 40 mg 7-06 Refill(s) l oral tablet 15:26: Oscar n gabapentin 2020-0 Yes = 1 tab, Mem oria 600 MG Oral 5-06 PO, BID, # l Tablet 16:04: 60 tab, 3 Oscar n 00 Refill(s), Pharmacy: [facility], 162.56, cm, 02/14/20 14:47:00 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, Height, 117.727, kg, 05/17/20 11:13:00 CDT, Weight gabapentin 2020-0 Yes = 1 tab, Mem oria 600 MG Oral 5-06 PO, BID, # l Tablet 16:04: 60 tab, 3 Oscar n 00 Refill(s), Pharmacy: [facility], 162.56, cm, 02/14/20 14:47:00 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, Height, 117.727, kg, 05/17/20 11:13:00 CDT, Weight Cephalexin 2020-0 Yes 500 mg, Robert cheli 5-06 PO, Daily, l 15:48: 0 Refill(s) Cephalexin 2020-0 Yes 500 mg, Robert cheli 5-06 PO, Daily, l 15:48: 0 Refill(s) diclofenac 2020-0 Yes 50 mg, PO, M emoria 5-06 BID, 0 l 15:47: Refill(s) Diclofenac 2020-0 Yes 50 mg, PO, M emoria 5-06 BID, 0 l 15:47: Refill(s) diclofenac 2020-0 Yes 50 mg, PO, M emoria 5-06 BID, 0 l 15:47: Refill(s) Diclofenac Yes 50 mg, PO, M emoria 5-06 BID, 0 l 15:47: Refill(s) [place] 00 losartan 25 Yes 25 mg = 1 M emoria mg oral 4-08 tab, PO, l tablet 16:32: Daily, # Noah 00 90 tab, 1 Refill(s) losartan 25 Yes 25 mg = 1 M emoria mg oral 4-08 tab, PO, l tablet 16:32: Daily, # [place] 90 tab, 1 Refill(s) Tresiba Yes 30, SUB-Q, Robert cheli FlexTouch 4-08 Daily, 0 l 16:15: Refill(s) [place] Tresiba Yes 30, SUB-Q, Robert cheli FlexTouch 4-08 Daily, 0 l 16:15: Refill(s) gabapentin Yes = 1 tab, Mem oria 600 MG Oral 1-05 PO, TID, # l Tablet 21:54: 90 tab, 2 Oscar n 00 Refill(s), Pharmacy: [id number], 162.56, cm, 02/14/20 14:47:00 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, Height, 115.455, kg, 02/14/20 14:47:00 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, Weight primidone Yes 100 mg = 2 Me moria 50 mg oral 1-05 tab, PO, l tablet 21:54: BID, X 90 Oscar n 00 day, # 360 tab, 1 Refill(s), Pharmacy: [facility], 162.56, cm, 02/14/20 14:47:00 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, Height, 115.455, kg, 02/14/20 14:47:00 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, Weight gabapentin Yes = 1 tab, Mem oria 600 MG Oral 1-05 PO, TID, # l Tablet 21:54: 90 tab, 2 Oscar n 00 Refill(s), Pharmacy: [facility], 162.56, cm, 02/14/20 14:47:00 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, Height, 115.455, kg, 02/14/20 14:47:00 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, Weight primidone 2021-0 Yes 100 mg = 2 Me moria 50 mg oral 1-05 tab, PO, l tablet 21:54: BID, X 90 Oscar n 00 day, # 360 tab, 1 Refill(s), Pharmacy: [place] [address], 162.56, cm, 02/14/20 14:47:00 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, Height, 115.455, kg, 02/14/20 14:47:00 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, Weight primidone 2019-02 No See Memoria 50 mg oral 2-03 Instructio l tablet 23:21: ns, TAKE 1 Ally nn 00 TABLET BY MOUTH IN THE MORNING AND 2 TABLETS IN THE EVENING, # 90 tab, 1 Refill(s), Pharmacy: [place] [address], 162.56, cm, 04/27/19 11:23:00 CDT, Height, 119.091, kg, 04/27/19 11:23:00 CDT, Weight primidone 2019-02 No See Memoria 50 mg oral 2-03 Instructio l tablet 23:21: ns, TAKE 1 Ally nn 00 TABLET BY MOUTH IN THE MORNING AND 2 TABLETS IN THE EVENING, # 90 tab, 1 Refill(s), Pharmacy: [place] [address], 162.56, cm, 04/27/19 11:23:00 CDT, Height, 119.091, kg, 04/27/19 11:23:00 CDT, Weight primidone 2018-02 Yes See Memoria 50 mg oral 1-20 Instructio l tablet 17:15: ns, 1 tab Oscar n 07 PO qam 2 po qpm, # 90 tab, 3 Refill(s), Pharmacy: [address] 2018-02 Yes See Memoria 50 mg oral 1-20 Instructio l tablet 17:15: ns, 1 tab Oscar n 07 PO qam 2 po qpm, # 90 tab, 3 Refill(s), Pharmacy: [address] 2018-02 Yes 50 mg = 1 Mem oria 50 mg oral 0-10 tab, PO, l tablet 17:23: BID, # 60 Oscar n 00 tab, 3 Refill(s), Pharmacy: [address] 2018-02 Yes 50 mg = 1 Mem oria 50 mg oral 0-10 tab, PO, l tablet 17:23: BID, # 60 Oscar n 00 tab, 3 Refill(s), Pharmacy: [facility] gabapentin 2017-02 Yes See Memoria 600 MG Oral 2-18 Instructio l Tablet 19:42: ns, TAKE [place] 52 ONE TABLET BY MOUTH THREE TIMES DAILY, # 90 tab, 5 Refill(s), Pharmacy: [facility] gabapentin 2017-02 Yes See Memoria 600 MG Oral 2-18 Instructio l Tablet 19:42: ns, TAKE Noah 52 ONE TABLET BY MOUTH THREE TIMES DAILY, # 90 tab, 5 Refill(s), Pharmacy: [facility] gabapentin No See Memoria 600 MG Oral 7-13 Instructio l Tablet 22:30: ns, # 90 [place] 58 tab, Refill(s) 4, TAKE ONE TABLET BY MOUTH THREE TIMES DAILY, Pharmacy: [facility] gabapentin No See Memoria 600 MG Oral 7-13 Instructio l Tablet 22:30: ns, # 90 [place] 58 tab, Refill(s) 4, TAKE ONE TABLET BY MOUTH THREE TIMES DAILY, Pharmacy: [facility] allopurinol Yes 100 mg = 1 Memoria 100 mg oral 4-14 tab, PO, l tablet 18:38: BID, 0 [place] 00 Refill(s) aspirin Yes 0 Memoria 4-14 Refill(s) l 18:38: [place] 00 DULoxetine Yes 60 mg = 1 Me moria 60 mg oral 4-14 cap, PO, l delayed 18:38: Daily, # Oscar n release 00 30 cap, 0 capsule Refill(s) metFORMIN Yes 1,000 mg = Me moria 1000 mg 4-14 1 tab, PO, l oral tablet 18:38: BID-Meals, Noah 00 # 30 tab, 0 Refill(s) metoprolol Yes 200 mg = 1 M emoria 200 mg oral 4-14 tab, PO, l tablet, 18:38: Daily, # Oscar n extended 00 30 tab, 0 release Refill(s) NovoLOG Yes SUB-Q, Memoria 4-14 TID-Before l 18:38: Meals, 0 Noah 00 Refill(s) pravastatin Yes 40 mg = 1 M emoria 40 mg oral 4-14 tab, PO, l tablet 18:38: Bedtime, # Ally nn 00 30 tab, 0 Refill(s) Singulair 2017 Yes 10 mg = 1 Mem oria 10 mg oral 4-14 tab, PO, l tablet 18:38: Bedtime, # Ally nn 00 30 tab, 0 Refill(s) hydrochloro 2017 Yes 1 tab, PO, Memoria thiazide-li 4-14 Daily, # l sinopril 18:38: 30 tab, 0 Herm promise 12.5 mg-10 00 Refill(s) mg oral tablet allopurinol Yes 100 mg = 1 Memoria 100 mg oral 4-14 tab, PO, l tablet 18:38: BID, 0 Noah 00 Refill(s) aspirin Yes 0 Memoria 4-14 Refill(s) l 18:38: [place] 00 DULoxetine Yes 60 mg = 1 Me moria 60 mg oral 4-14 cap, PO, l delayed 18:38: Daily, # Oscar n release 00 30 cap, 0 capsule Refill(s) metFORMIN Yes 1,000 mg = Me moria 1000 mg 4-14 1 tab, PO, l oral tablet 18:38: BID-Meals, [place] 00 # 30 tab, 0 Refill(s) metoprolol Yes 200 mg = 1 M emoria 200 mg oral 4-14 tab, PO, l tablet, 18:38: Daily, # Oscar n extended 00 30 tab, 0 release Refill(s) NovoLOG 2017 Yes SUB-Q, Memoria 4-14 TID-Before l 18:38: Meals, 0 Noah 00 Refill(s) pravastatin 2017 Yes 40 mg = 1 M emoria 40 mg oral 4-14 tab, PO, l tablet 18:38: Bedtime, # Ally nn 00 30 tab, 0 Refill(s) Singulair Yes 10 mg = 1 Mem oria 10 mg oral 4-14 tab, PO, l tablet 18:38: Bedtime, # Ally nn 00 30 tab, 0 Refill(s) hydrochloro 2017 Yes 1 tab, PO, Memoria thiazide-li 4-14 Daily, # l sinopril 18:38: 30 tab, 0 Herm promise 12.5 mg-10 00 Refill(s) mg oral tablet Vital Signs Vital Name Observation Time Observation Value Comments Source Systolic (mm Hg) 2022-05-14 19:27:00 Robert rial [place] Diastolic (mm Hg) 2022-05-14 19:27:00 Mem orial [place] Heart Rate 2022-05-14 19:27:00 [facility] [place] Height 2022-05-14 19:27:00 5 [ft_i] [facility] [place] Weight 2022-05-14 19:27:00 [facility] [place] BMI Calculated 2022-05-14 19:27:00 Memori al [place] Systolic (mm Hg) 2022-02-13 16:01:00 Robert rial [place] Diastolic (mm Hg) 2022-02-13 16:01:00 Mem orial [place] Heart Rate 2022-02-13 16:01:00 [facility] [place] Height 2022-02-13 16:01:00 5 [ft_i] [facility] Noah Weight 2022-02-13 16:01:00 [facility] [place] BMI Calculated 2022-02-13 16:01:00 Memori al [place] Systolic (mm Hg) 2021-11-13 18:41:00 Robert rial [place] Diastolic (mm Hg) 2021-11-13 18:41:00 Mem orial [place] Heart Rate 2021-11-13 18:41:00 [facility] [place] Respitory Rate 2021-11-13 18:41:00 Memori al [place] Height 2021-11-13 18:41:00 162.56 cm [facility] [place] Weight 2021-11-13 18:41:00 [facility] [place] BMI Calculated 2021-11-13 18:41:00 Memori al [place] BMI Calculated 2021-10-01 15:57:00 Memori al [place] Systolic (mm Hg) 2021-10-01 15:57:00 Robert rial [place] Diastolic (mm Hg) 2021-10-01 15:57:00 Mem orial Noah Heart Rate 2021-10-01 15:57:00 [facility] [place] Respitory Rate 2021-10-01 15:57:00 Memori al [place] Height 2021-10-01 15:57:00 160.02 cm [facility] [place] Weight 2021-10-01 15:57:00 [facility] [place] Systolic (mm Hg) 2021-05-15 16:51:00 Robert rial [place] Diastolic (mm Hg) 2021-05-15 16:51:00 Mem orial Noah Heart Rate 2021-05-15 16:51:00 [facility] [place] Respitory Rate 2021-05-15 16:51:00 Memori al [place] Height 2021-05-15 16:51:00 160.02 cm [facility] [place] Weight 2021-05-15 16:51:00 [facility] Noah BMI Calculated 2021-05-15 16:51:00 Memori al [place] Weight 2021-02-14 16:28:00 [facility] [place] BMI Calculated 2021-02-14 16:28:00 Memori al [place] Systolic (mm Hg) 2021-02-14 16:28:00 Robert rial [place] Diastolic (mm Hg) 2021-02-14 16:28:00 Mem orial [place] Heart Rate 2021-02-14 16:28:00 [facility] Noah Respitory Rate 2021-02-14 16:28:00 Memori al [place] Height 2021-02-14 16:28:00 162.56 cm [facility] [place] Systolic (mm Hg) 2020-08-14 15:13:00 Robert rial [place] Diastolic (mm Hg) 2020-08-14 15:13:00 Mem orial [place] Heart Rate 2020-08-14 15:13:00 [facility] Noah Respitory Rate 2020-08-14 15:13:00 Memori al [place] Height 2020-08-14 15:13:00 162.56 cm [facility] [place] Weight 2020-08-14 15:13:00 [facility] Noah BMI Calculated 2020-08-14 15:13:00 Memori al [place] Systolic (mm Hg) 2020-06-14 15:45:00 Robert rial [place] Diastolic (mm Hg) 2020-06-14 15:45:00 Mem orial Noah Heart Rate 2020-06-14 15:45:00 [facility] [place] Respitory Rate 2020-06-14 15:45:00 Memori al [place] Height 2020-06-14 15:45:00 162.56 cm [facility] [place] Weight 2020-06-14 15:45:00 [facility] [place] BMI Calculated 2020-06-14 15:45:00 Memori al [place] Systolic (mm Hg) 2020-05-17 16:04:00 Robert rial [place] Diastolic (mm Hg) 2020-05-17 16:04:00 Mem orial Noah Heart Rate 2020-05-17 16:04:00 [facility] [place] Respitory Rate 2020-05-17 16:04:00 Memori al [place] Weight 2020-05-17 16:04:00 [facility] [place] Systolic (mm Hg) 2020-02-14 20:47:00 Robert rial [place] Diastolic (mm Hg) 2020-02-14 20:47:00 Mem orial [place] Heart Rate 2020-02-14 20:47:00 [facility] Noah Height 2020-02-14 20:47:00 162.56 cm [facility] [place] Weight 2020-02-14 20:47:00 [facility] [place] BMI Calculated 2020-02-14 20:47:00 Memori al [place] Systolic (mm Hg) 2019-04-27 16:23:00 Robert rial [place] Diastolic (mm Hg) 2019-04-27 16:23:00 Mem orial [place] Heart Rate 2019-04-27 16:23:00 [facility] [place] Respitory Rate 2019-04-27 16:23:00 Memori al [place] Height 2019-04-27 16:23:00 162.56 cm [facility] [place] Weight 2019-04-27 16:23:00 [facility] [place] BMI Calculated 2019-04-27 16:23:00 Memori al [place] Systolic (mm Hg) 2018-12-29 16:53:00 Robert rial [place] Diastolic (mm Hg) 2018-12-29 16:53:00 Mem orial Noah Heart Rate 2018-12-29 16:53:00 [facility] [place] Respitory Rate 2018-12-29 16:53:00 Memori al [place] Height 2018-12-29 16:53:00 160.02 cm [facility] [place] Weight 2018-12-29 16:53:00 [facility] Noah BMI Calculated 2018-12-29 16:53:00 Memori al [place] Systolic (mm Hg) 2018-11-18 16:05:00 Robert rial [place] Diastolic (mm Hg) 2018-11-18 16:05:00 Mem orial Noah Heart Rate 2018-11-18 16:05:00 [facility] [place] Respitory Rate 2018-11-18 16:05:00 Memori al [place] Height 2018-11-18 16:05:00 162.56 cm [facility] [place] Weight 2018-11-18 16:05:00 [facility] [place] BMI Calculated 2018-11-18 16:05:00 Memori al [place] Weight 2018-01-26 19:24:00 [facility] [place] Height 2018-01-26 19:24:00 162.56 cm [facility] BMI Calculated 2018-01-26 19:24:00 Memori al [place] Respitory Rate 2018-01-26 19:24:00 Memori al [place] Heart Rate 2018-01-26 19:24:00 [facility] [place] Systolic (mm Hg) 2018-01-26 19:24:00 Robert rial [place] Diastolic (mm Hg) 2018-01-26 19:24:00 Mem orial Noah Procedures Procedure Date / Time Performed Performing Clinician Sour e Colonoscopy 2016-06-25 05:00:00 [facility] Her [place] Wrist repair [facility] [place] Hysterectomy [facility] [place] Cholecystectomy [facility] [place] Encounters Start End Encounter Admission Attending Care Care Encounter Source Date/Time Date/Time Type Type Clinicians Facility Department ID 2022-09-09 2022-09-09 Outpatient MHIE MHIE [id number] Memoria 13:15:00 13:15:00 23 l [place] 2022-09-09 2022-09-09 Outpatient MHIE MHIE [id number] Memoria 13:15:00 13:15:00 23 l [place] 2022-05-14 2022-05-15 Outpatient MHIE MNA [id number] Memoria 19:30:00 04:59:59 Neurology 22 l Logan [place] 2022-05-14 2022-05-15 Outpatient MHIE MNA [id number] Memoria 19:30:00 04:59:59 Neurology 22 l Logan [place] 2022-05-14 2022-05-14 [id number] 14:30:00 23:59:59 Bigg 22 Hilario 2022-05-14 2022-05-14 Outpatient MHIE MHIE [id number] Memoria 14:30:00 14:30:00 22 l [place] 2022-03-18 2022-03-18 Ambulatory MHIE MNA [id number] Memoria 19:45:00 19:45:00 Pre-Reg Neurology 20 l Nubia Zamora 2022-03-18 2022-03-18 Ambulatory MHIE MNA [id number] Memoria 19:45:00 19:45:00 Pre-Reg Neurology 20 l Nubia Zamora 2022-03-18 2022-03-18 Outpatient MHIE MHIE [id number] Memoria 13:45:00 13:45:00 20 l [place] 2022-03-18 2022-03-18 Outpatient Rober MHMISCHER MHMISCHER [id number] 13:45:00 13:45:00 Bigg 20 Hilario 2022-02-13 2022-02-14 Outpatient MHIE MNA [id number] Memoria 16:00:00 05:59:59 Neurology 21 l Nubia Zamora 2022-02-13 2022-02-14 Outpatient MHIE MNA [id number] Memoria 16:00:00 05:59:59 Neurology 21 l Nubia Zamora 2022-02-13 2022-02-13 Outpatient Rober MHMISCHER MHMISCHER [id number] 10:00:00 23:59:59 Bigg 21 Hilario 2022-02-13 2022-02-13 Outpatient MHIE MHIE [id number] Memoria 10:00:00 10:00:00 21 ac Zamora 2021-11-13 2021-11-14 Outpatient nullFlavo MNA [id number] Memoria 18:45:00 04:59:59 r Neurology 19 l Nubia Zamora 2021-11-13 2021-11-14 Outpatient nullFlavo MNA [id number] Memoria 18:45:00 04:59:59 r Neurology 19 l Nubia Zamora 2021-11-13 2021-11-13 Outpatient Rober MHMISCHER MHMISCHER [id number] 13:45:00 23:59:59 Bigg 19 Hilario 2021-11-13 2021-11-13 Outpatient MHIE MHIE [id number] Memoria 13:45:00 13:45:00 19 ac Zamora 2021-10-01 2021-10-02 Outpatient nullFlavo MNA [id number] Memoria 16:00:00 04:59:59 r Neurology 18 l Nubia Zamora 2021-10-01 2021-10-02 Outpatient nullFlavo MNA [id number] Memoria 16:00:00 04:59:59 r Neurology 18 l Nubia Zamora 2021-10-01 2021-10-01 Outpatient Rober [facility] [id number] 11:00:00 23:59:59 Bigg 18 Hilario 2021-10-01 2021-10-01 Outpatient MHIE IE [id number] Memoria 11:00:00 11:00:00 18 ac Zamora 2021-05-15 2021 Outpatient nullFlavo MNA [id number] Memoria 16:30:00 04:59:59 r Neurology 17 l Nubia Zamora 2021-05-15 2021 Outpatient nullFlavo MNA [id number] Memoria 16:30:00 04:59:59 r Neurology 17 l Nubia Zamora 2021-05-15 2021-05-15 [id number] 11:30:00 23:59:59 Bigg 17 Hilario 2021-05-15 2021-05-15 Outpatient MHIE ZAKI [id number] Memoria 11:30:00 11:30:00 17 ac Zamora 2021-02-14 2021-02-15 Outpatient nullFlavo MNA [id number] Memoria 16:30:00 05:59:59 r Neurology 16 l Nubia Zamora 2021-02-14 2021-02-15 Outpatient nullFlavo MNA [id number] Memoria 16:30:00 05:59:59 r Neurology 16 l Nubia Zamora 2021-02-14 2021-02-14 [facility] [id number] 10:30:00 23:59:59 Bigg 16 Hilario 2021-02-14 2021-02-14 Outpatient MHIE MHIE [id number] Memoria 10:30:00 10:30:00 16 ac Zamora 2020-08-14 2020-08-15 Outpatient nullFlavo MNA [id number] Memoria 15:15:00 04:59:59 r Neurology 15 l Nubia Zamora 2020-08-14 2020-08-15 Outpatient nullFlavo MNA [id number] Memoria 15:15:00 04:59:59 r Neurology 15 l Nubia Zamora 2020-08-14 2020-08-14 Outpatient BIANCA RichterINSCHER MISCHER [id number] 10:15:00 23:59:59 Bigg 15 Hilario 2020-08-14 2020-08-14 Ambulatory nullFlavo MNA [id number] Memoria 18:00:00 18:00:00 Pre-Reg r Neurology 12 l Nubia Zamora 2020-08-14 2020-08-14 Ambulatory nullFlavo MNA [id number] Memoria 18:00:00 18:00:00 Pre-Reg r Neurology 12 l Nubia Zamora 2020-08-14 2020-08-14 Outpatient MHIE MHIE [id number] Memoria 13:00:00 13:00:00 12 ac Zamora 2020-08-14 2020-08-14 [facility] [id number] 13:00:00 13:00:00 Bigg 12 Hilario 2020-08-14 2020-08-14 Outpatient MHIE MHIE [id number] Memoria 10:15:00 10:15:00 15 ac Zamora 2020-06-14 2020-06-15 Outpatient nullFlavo MNA [id number] Memoria 15:15:00 04:59:59 r Neurology 14 l Nubia Zamora 2020-06-14 2020-06-15 Outpatient nullFlavo MNA [id number] Memoria 15:15:00 04:59:59 r Neurology 14 l Nubia Zamora 2020-06-14 2020-06-14 Outpatient JOSEPH RichterSCHER MISCHER [id number] 10:15:00 23:59:59 Bigg 14 Hilario 2020-06-14 2020-06-14 Outpatient MHIE MHIE [id number] Memoria 10:15:00 10:15:00 14 l Noah 2020-05-22 2020-05-24 Outside nullFlavo MNA [id number] Memoria 13:42:35 04:59:59 Medical r Neurology 03 l Records Nubia Zamora 2020-05-22 2020-05-24 Outside nullFlavo MNA [id number] Memoria 13:42:35 04:59:59 Medical r Neurology 03 l Records Nubia Zamora 2020-05-22 2020-05-23 Outpatient MHMISCHER MHMISCHER [id number] 08:42:35 23:59:59 03 2020-05-17 2020-05-18 Outpatient nullFlavo MNA [id number] Memoria 15:45:00 04:59:59 r Neurology 13 l Nubia Zamora 2020-05-17 2020-05-18 Outpatient nullFlavo MNA [id number] Memoria 15:45:00 04:59:59 r Neurology 13 l Nubia Zamora 2020-05-17 2020-05-17 [facility] [id number] 10:45:00 23:59:59 Bigg 13 Hilario 2020-05-17 2020-05-17 Outpatient MHIE MHIE [id number] Memoria 10:45:00 10:45:00 13 ac Zamora 2020-02-16 2020-02-18 Outside nullFlavo MNA [id number] Memoria 18:23:02 05:59:59 Medical r Neurology 02 l Records Nubia Zamora 2020-02-16 2020-02-18 Outside nullFlavo MNA [id number] Memoria 18:23:02 05:59:59 Medical r Neurology 02 l Records Nubia Zamora 2020-02-16 2020-02-17 Outpatient MHMISCHER MHMISCHER [id number] 12:23:02 23:59:59 02 2020-02-14 2020-02-15 Outpatient nullFlavo MNA [id number] Memoria 20:45:00 05:59:59 r Neurology 11 l Nubia Zamora 2020-02-14 2020-02-15 Outpatient nullFlavo MNA [id number] Memoria 20:45:00 05:59:59 r Neurology 11 l Nubia Zamora 2020-02-14 2020-02-14 [facility] [id number] 14:45:00 23:59:59 Bigg 11 Hilario 2020-02-14 2020-02-14 Ambulatory nullFlavo MNA [id number] Memoria 17:30:00 17:30:00 Pre-Reg r Neurology 10 ac Zamora 2020-02-14 2020-02-14 Ambulatory nullFlavo MNA [id number] Memoria 17:30:00 17:30:00 Pre-Reg r Neurology 10 l Nubia Zamora 2020-02-14 2020-02-14 Outpatient MHIE MHIE [id number] Memoria 14:45:00 14:45:00 11 ac Zamora 2020-02-14 2020-02-14 [facility] [id number] 11:30:00 11:30:00 Bigg Jeff Rich 2020-01-12 2020-01-12 Outpatient MHIE MHIE [id number] Memoria 13:00:00 13:00:00 10 ac [place] 2019-10-28 2019-10-28 Ambulatory nullFlavo MNA [id number] Memoria 15:30:00 15:30:00 Pre-Reg r Neurology 09 l Nubia Noah 2019-10-28 2019-10-28 Ambulatory nullFlavo MNA [id number] Memoria 15:30:00 15:30:00 Pre-Reg r Neurology 08 l Logan [place] 2019-10-28 2019-10-28 Ambulatory nullFlavo MNA [id number] Memoria 15:30:00 15:30:00 Pre-Reg r Neurology 08 l Logan [place] 2019-10-28 2019-10-28 Ambulatory nullFlavo MNA [id number] Memoria 15:30:00 15:30:00 Pre-Reg r Neurology 09 l Nubia Noah 2019-10-28 2019-10-28 Outpatient MHIE MHIE [id number] Memoria 10:30:00 10:30:00 09 ac [place] 2019-10-28 2019-10-28 Outpatient MHIE MHIE [id number] Memoria 10:30:00 10:30:00 08 ac Zamora 2019-10-28 2019-10-28 Outpatient Abdulazizeron [facility] MISCHER [id number] 10:30:00 10:30:00 Bigg 09 Hilario 2019-10-28 2019-10-28 Outpatient Rober [facility]ER [id number] 10:30:00 10:30:00 Bigg 08 Hilario 2019-04-27 2019-04-28 Outpatient nullFlavo MNA [id number] Memoria 16:00:00 04:59:59 r Neurology 07 l Nubia Zamora 2019-04-27 2019-04-28 Outpatient nullFlavo MNA [id number] Memoria 16:00:00 04:59:59 r Neurology 07 l Nubia Zamora 2019-04-27 2019-04-27 [facility] [id number] 11:00:00 23:59:59 Bigg 07 Hilario 2019-04-27 2019-04-27 Outpatient MHIE MHIE [id number] Memoria 11:00:00 11:00:00 07 ac Zamora 2018-12-29 2018-12-30 Outpatient nullFlavo MNA [id number] Memoria 17:00:00 05:59:59 r Neurology 06 l Nubia Zamora 2018-12-29 2018-12-30 Outpatient nullFlavo MNA [id number] Memoria 17:00:00 05:59:59 r Neurology 06 l Nubia Zamora 2018-12-29 2018-12-29 [facility] [id number] 11:00:00 23:59:59 Bigg Emy Rich 2018-12-29 2018-12-29 Outpatient MHIE MHIE [id number] Memoria 11:00:00 11:00:00 06 ac Noah 2018-11-18 2018-11-19 Outpatient nullFlavo MNA [id number] Memoria 16:45:00 04:59:59 r Neurology 05 l Logan Noah 2018-11-18 2018-11-19 Outpatient nullFlavo MNA [id number] Memoria 16:45:00 04:59:59 r Neurology 05 l Logan Noah 2018-11-18 2018-11-18 Outpatient Rober [facility] MISCHER [id number] 11:45:00 23:59:59 Bigg 05 Hilario 2018-11-18 2018-11-18 Outpatient MHIE MHIE [id number] Memoria 11:45:00 11:45:00 05 ac Zamora 2018-11-02 2018-11-02 Ambulatory nullFlavo MNA [id number] Memoria 18:15:00 18:15:00 Pre-Reg r Neurology 04 l Loganmarisel Zamora 2018-11-02 2018-11-02 Ambulatory nullFlavo MNA [id number] Memoria 18:15:00 18:15:00 Pre-Reg r Neurology 04 l Nubia Zamora 2018-11-02 2018-11-02 Outpatient Rober, MISCHER MHMISCHER [id number] 13:15:00 13:15:00 Bigg Tiffanie Rich 2018-01-26 2018-01-27 Outpatient nullFlavo MNA [id number] Memoria 19:00:00 05:59:59 r Neurology 03 l Nubia Dockeryann 2018-01-26 2018-01-27 Outpatient nullFlavo MNA [id number] Memoria 19:00:00 05:59:59 r Neurology 03 l Nubia [place] 2018-01-26 2018-01-26 [facility] [id number] 13:00:00 23:59:59 Bigg 03 Hilario 2018-01-26 2018-01-26 Outpatient MHIE MHIE [id number] Memoria 13:00:00 13:00:00 03 ac Zamora 2016-07-09 2016-07-09 Outpatient MHIE MHIE [id number] Memoria 16:00:00 16:00:00 02 ac Zamora 2016-07-09 2016-07-09 Outpatient MHIE MHIE [id number] Memoria 16:00:00 16:00:00 02 ac Zamora 2016-05-23 2016-05-23 Outpatient MHIE MHIE [id number] Memoria 14:00:00 14:00:00 00 ac Zamora 2016-05-23 2016-05-23 Outpatient MHIE MHIE [id number] Memoria 14:00:00 14:00:00 00 ac Zamora Results This patient has no known results.
[2022-05-26 09:55] VITALS: BMI 40.3
[2022-05-26] MEDS ORDERED: D50W 25 GM/50 ML SYRINGE IV PRN (10:38)
[2022-05-26] MEDS ORDERED: GLUCAGON 1 MG/VIAL IM PRN (10:38)
[2022-05-26] MEDS ORDERED: D10W 125 ML IV PRN (10:47)
[2022-05-26] MEDS: HYDROCODONE/APAP 7.5/325 MG TAB PO PRN ×2 (12:26→22:40)
[2022-05-26] MEDS: INSULIN -REGULAR HUMAN 50 UNIT/0.5 ML ML SQ SCH ×3 (12:53→19:53)
[2022-05-26 14:04] LABS: Urine Bacteria None Seen /HPF (<20); Urine Bilirubin NEGATIVE (Negative); Urine Blood Negative (Negative); Urine Clarity Turbid (Clear); Urine Color Light-Yellow (Yellow); Urine Glucose NEGATIVE (Negative); Urine Mucus Slight /HPF (None Seen); Urine Protein NEGATIVE (Negative); Urine RBC <5 /HPF (None Seen); Urine Urobilinogen Normal (Normal); Urine pH 8.5 (5.0-7.0)
[2022-05-26] MEDS ORDERED: POLYETHYL GLY 3350 17 GM/DOSE PO PRN (16:00)
[2022-05-26] MEDS: METFORMIN ER 500 MG TAB PO SCH (16:54)
[2022-05-26] MEDS ORDERED: FUROSEMIDE 20 MG/ 2ML VIAL IV SCH (17:00)
[2022-05-26] MEDS: FUROSEMIDE 20 MG TABLET PO SCH (17:06)
[2022-05-26] MEDS ORDERED: INSULIN GLARGINE 100 UNIT/ML SQ SCH ×2 (18:00→20:00)
[2022-05-26] MEDS: INSULIN GLARGINE 100 UNIT/ML SQ SCH (19:52)
[2022-05-26] MEDS: ATORVASTATIN 40 MG TAB PO SCH (19:52)
[2022-05-26] MEDS: PRIMIDONE 50 MG TAB PO SCH (19:52)
[2022-05-26] MEDS ORDERED: PRIMIDONE 50 MG TAB PO SCH (20:00)
[2022-05-27 04:15] LABS: Absolute Lymphocytes (CBC) 1.9 K/uL (0.7-4.9); Hematocrit 30.5 % (36.0-45.0); Lymphocytes % 24.1 % (15.3-44.8); MCV 96.5 fL (80-100); MPV 8.1 fL (7.6-11.3); RBC Red Blood Cell Count 3.16 M/uL (3.86-4.86)
[2022-05-27 04:39] LABS: Albumin 2.5 g/dL (3.4-5.0); Magnesium 1.6 mg/dL (1.6-2.4); Potassium 3.7 mEq/L (3.5-5.1)
[2022-05-27] MEDS: METOPROLOL XL 100 MG TAB PO SCH (05:38)
[2022-05-27] MEDS: INSULIN -REGULAR HUMAN 50 UNIT/0.5 ML ML SQ SCH ×4 (07:30→20:10)
[2022-05-27] MEDS ORDERED: INSULIN GLARGINE 100 UNIT/ML SQ SCH ×2 (08:00)
[2022-05-27] MEDS ORDERED: TRESIBA 20 UNIT SQ SCH (08:00)
--- NOTE | 2022-05-27 08:27 | HP ---
Date of Admission: 05/26/2022 Rehabilitation Admission History and Physical. Time Of Service: 1:15 p.m. Chief Complaint: "I fell and broke my right hip." History Of Present Illness: Ms. Spencer is a 77-year-old patient with diabetes, hypertension, dyslipide usama, transient ischemic attacks, who came to [facility] after a fall on 05/20/2022, impacting the right hip and developing pain. She did fall backwards on that side, but did not lose consciousn ess. X-ray showed a right hip fracture. She was evaluated by the Orthopedic Service, Dr. Lee durham, and on 05/21/2022, he performed right hip hemiarthroplasty without complications and she was put at weightbearing as tolerated on the right lower extremity. The patient was evaluated by the Physica l and Occupational Therapy Service and determined significant decrease of upper body, upper extremity strength and range of motion, decreased capacity to do transfers, and very poor safety awareness. S he was dependent in bed mobility and all other transfers and gait. Also, she had significant decreas ed lower extremity range of motion and strength. As a result, it is determined that she would requir e aggressive inpatient rehabilitation to be able to return back home. Past Medical History: As noted above including diabetes mellitus type 2, hypertension, dyslipidemia, transient ischemic attacks. Past Surgical History: Left knee arthroplasty, wrist surgery, and now right hip fracture surgery of a right femoral neck fracture and she had right hemiarthroplasty. Social History: No alcohol, tobacco, or IV drug use. The patient lives at [facility] family home . Family History: Heart disease in father and mother. Current Medications: [place] 7.5/325 every 4 hours as needed, allopurinol 100 mg daily, aspirin 81 mg daily, Lipitor 40 mg at bedtime, Cymbalta 60 mg daily, Lovenox 40 mg subcutaneously daily, Lasix 20 m g twice daily, Cozaar 50/12.5 daily, Semglee insulin 30 units with breakfast and an insulin sliding s jose alfredo, metformin 1000 mg twice daily, Toprol-XL 200 mg daily, Zofran 4 mg every 4 hours, and primidone 150 mg twice daily for essential tremor. X-ray/imaging: On 05/20/2022, x-ray showed a displaced right femoral neck fracture. Review of Systems: Ms. Spencer reports some hoad-ls-wfjbngfi pain in the right hip where her fracture is, swelling in the r ight lower extremity, but otherwise, no fevers or chills. She did have a bowel movement after severa l days of constipation and no rash. No headache. No psychiatric issues. Physical Examination: Vital Signs: Blood pressure 140/66, pulse 80, respiratory rate 16, temperature 98.2, oxygen saturati on 95%. General: Ms. Spencer is resting in bed comfortably. She is in no significant distress. HEENT: She is normocephalic, atraumatic. Sclerae anicteric. Oropharynx pink and moist. Neck: Supple. Chest: Clear. Heart: Regular. She does have good hemostasis of the right hip surgical site which is covered. Extremities: Again, mild edema in the right more than left lower extremity and she is moderately obe se. Current Level Of Functioning: Currently, she required maximal assistance for supine to sit transfers , minimum to moderate assistance for stand to pivot transfers with a rolling walker. Toilet transfer s done with minimum to moderate assistance. She did ambulate well on feet 4 times with minimal zack tance using a rolling walker. Rehabilitation And Medical Assessment And Plan: Ms. Spencer is a 77-year-old patient with a right hip f racture status post hemiarthroplasty of the right hip and she has comorbid conditions including hyper tension, dyslipidemia, diabetes mellitus type 2, and transient ischemic attacks. She also is moderat katherine obese. In addition, she has mild anemia, hemoglobin 10.3. Her rehabilitation impairment category is 07 orthopedic, lower extremity fracture. Her impairment gr oup code is 08.11, status post unilateral hip fracture. Her etiologic diagnosis is right femoral nec k fracture. Active comorbidities, diabetes mellitus type 2, hypertension, dyslipidemia, and benign e ssential tremors. Plan: 1.Physical and occupational therapy 3 hours a day, 5 of 7 days. 2.Speech therapy if required. 3.For diabetes mellitus, continue Semglee 30 units with breakfast along with metformin mg twice daily. For blood pressure, Toprol-XL 200 mg twice daily. Continue primidone 150 mg twice josé miguel ly for essential tremor. Continue Lasix 20 mg twice daily for fluid management. 4.Continue Lovenox 40 mg subcutaneously daily for DVT prophylaxis. 5.Cymbalta 60 mg daily for depression. 6.Lipitor 40 mg at bedtime for dyslipidemia. 7.Aspirin 81 mg daily for stroke risk reduction. 8.Allopurinol 100 mg daily for gout. 9.Hilbert 7.5/325 mg daily for pain. 10.Comorbidities: The impact of comorbidities on her hospitalization. At this point, she has essen tial tremor and some difficulty with coordination. The patient will be given Mysoline scheduled to h elp minimize tremors and allow her to facilitate her exercise and rehabilitation. She also has depre ssion. She will continue with antidepressants. Diabetes mellitus with blood sugars somewhat elevate d and sliding scale will be used and adjustments made accordingly to her baseline insulin. Rehab Plan: 1.She will have physical and occupational therapy for 3 hours a day, 5 or 7 days. 2.If need be, speech therapy will be done for hours, 5 or 7 days. 3.She will have retirement to address all of her comorbid conditions as noted above. 4.Ms. Spencer has a good understanding of her admission to the inpatient rehabilitation unit. She has good potential to make improvement and will require at least physical and occupational therapy to do so. In addition, if need be, services from the Orthopedic Service, Wound Care, and Nutrition Service will be consulted along with diabetic teaching nurse. Given her complex condition and risk of furth er medical complications, her rehabilitation cannot be safely performed at a lower level such as [facility]. Barriers To Discharge: At this point, xkxl-vt-layfkdxj essential tremor is a barrier to discharge bu t that can be easily overcome. Her anemia to be overcome with iron, ferrous sulfate, and with protei n supplementation. Estimated Length Of Stay: Around 13 or 14 days. Disposition: Home. Prognosis: Good. Rehabilitation Goals: 1.Perform upper and lower body dressing independently. 2.Transfer to toilet, shower, bed, chair, and walker independently. 3.Ambulate 250 feet independently. 4.Up and down 10 steps independently. 5.I personally have performed a full physical examination on Ms. Spencer no later than 24 hours after a dmission to the inpatient unit and I have determined that she is able to tolerate the above course of treatment at the level as stated. A detailed individualized plan of care will be completed by quinton burt day 4 based on the preadmission screen, history and physical, and therapy evaluations. LB/MODL Voice ID: [id number]
[2022-05-27] MEDS ORDERED: MELATONIN 3 MG TABLET PO PRN (08:58)
[2022-05-27] MEDS: DULOXETINE 30 MG CAP PO SCH (09:02)
[2022-05-27] MEDS: HYDROCODONE/APAP 7.5/325 MG TAB PO PRN ×3 (09:02→17:04)
[2022-05-27] MEDS: METFORMIN ER 500 MG TAB PO SCH ×2 (09:03→17:04)
[2022-05-27] MEDS: allopurinoL 100 MG TAB PO SCH (09:03)
[2022-05-27] MEDS: ASPIRIN EC 81 MG TAB PO SCH (09:03)
[2022-05-27] MEDS: ENOXAPARIN 40 MG/0.4 ML SQ SCH (09:04)
[2022-05-27] MEDS: FUROSEMIDE 20 MG TABLET PO SCH ×2 (09:04→17:05)
[2022-05-27] MEDS: PRIMIDONE 50 MG TAB PO SCH ×2 (10:41→20:09)
[2022-05-27] MEDS: LOSARTAN/HCTZ 50-12.5 PO SCH (10:57)
[2022-05-27] MEDS: CIPROFLOXACIN HCL 500 MG TAB PO SCH ×2 (14:39→20:08)
[2022-05-27] MEDS: ONDANSETRON 4 MG (ODT) TAB PO PRN (17:05)
[2022-05-27] MEDS: ATORVASTATIN 40 MG TAB PO SCH (20:09)
[2022-05-27] MEDS: INSULIN GLARGINE 100 UNIT/ML SQ SCH (20:09)
[2022-05-27] MEDS: CRANBERRY FRUIT EXTRACT 200 MG CAP PO SCH (20:09)
[2022-05-27] MEDS: MELATONIN 5 MG TABLET PO PRN (20:21)
--- NOTE | 2022-05-27 23:19 | PN ---
Date of Progress Note: 05/27/2022 Sowc-Kq-Ivfp Progress Note Visit Time Of Service: 1:30 p.m. Subjective: Ms. Spencer reports some difficulty sleeping last night and feels that she has a urinary tr act infection with some burning and frequency. Otherwise, she denies any myalgias or arthralgias. S he said the pain in the right hip is improving, that is where she has surgery for her right hip fract ure. Review of Systems: As noted some urinary frequency and burning and insomnia. Otherwise, negative on a 10-point review o f systems. Physical Examination: Vital Signs: Blood pressure 140/68, pulse 70, respiratory rate 16, temperature 98.0, and oxygen satu ration 94%. General: Ms. Spencer is lying in bed in between therapy sessions. She is in no acute distress. HEENT: She is normocephalic, atraumatic. Sclerae anicteric. Oropharynx is moist. Neck: Supple. Extremities: She has mild swelling in the right lower extremity from her right hip fracture. No oth er findings on the examination. Laboratory Studies: White blood cell count 7.9, hemoglobin 10.3, and platelets 312. Chemistries: H er blood sugars have been significantly elevated with max of 404, currently 218. Her medications hav e been adjusted, which is her Semglee is adjusted from 30 units in the morning to 35 units. She will continue Semglee 15 units at bedtime. Otherwise in terms of laboratory studies, urinalysis shows tu rbid clarity, pH 8.5, nitrite 2+, esterase 250. Cultures are pending. X-ray/imaging: None. Current Medications: For essential tremor primidone 150 mg twice daily, Zofran 4 mg every 4 hours as needed, Hemocyte Plus 1 tablet daily, Toprol-XL 200 mg daily, metformin 1000 mg twice daily, melaton in 5 mg at night, Semglee 35 units at breakfast and 15 units at night, Hyzaar 12.5 one tablet daily, Lasix 20 mg twice daily, ferrous sulfate 325 mg daily, Lasix 40 mg daily, Cymbalta 60 mg daily, cipro floxacin now started for possible urinary tract infection at 500 mg twice daily, Lipitor 40 mg at bed time, aspirin 81 mg daily, allopurinol for gout 100 mg daily, [place] 7.5/325 every 4 hours as needed f or severe pain. Current Functional Status: Today she ambulated 10 feet, 25 feet, 8 feet, 40 feet, and 30 feet with m inimal assistance using a rolling walker. She mobilized the wheelchair 85 feet with upper extremitie s. Supine to sit transfer done with moderate assistance, stand and pivot transfers with minimal assi stance using a rolling walker. She did tolerate 5 times standing for 30 seconds each to improve her core strength. She did 6 sit to stand transfers with a rolling walker with supervision. She was see n by Speech Therapy with long-term goals of improving executive functioning and memory to facilitate her improvement as she goes home. Progress Towards Rehabilitation Goals: Ms. Spencer is beginning to make fair progress overall with phys ical, occupational, and speech therapy towards her goals of becoming modified independent with upper body and lower body dressing, toileting, transferring, cognitive functioning, and ambulating househol d distances of over 50 feet with a rolling walker with modified independence. She has 1 step at home , but we will work on more steps to become modified independence with at least 5 steps with bilateral hand rails. Assessment: Ms. Spencer is a 77-year-old patient in the rehabilitation unit with a right hip fracture s tatus post hemiarthroplasty. She has hypertension, dyslipidemia, diabetes mellitus type 2, transient ischemic attacks with moderate obesity, and moderate anemia. Plan: 1.Physical, occupational, and speech therapy for 3.5 hours, 5 of 7 days. 2.Continue the increased amount of Semglee 35 units with breakfast and 15 units at night. Continue metformin 1000 mg twice daily. 3.Continue Toprol-XL 200 mg twice daily for hypertension. 4.Continue primidone 150 mg at night for essential tremor. 5.Lasix continued for fluid management. 6.Lovenox for DVT prophylaxis. 7.Cymbalta for depression. 8.Lipitor for dyslipidemia. 9.Aspirin for stroke risk reduction. 10.Allopurinol for gout. 11.[place] for pain. Comorbids That Continue To Impact Rehabilitation Process: She is making fair, but slow progress so f ar. She does have essential tremor, addressed with Mysoline. She has possible urinary tract infecti on treated with ciprofloxacin. She has insomnia, now on melatonin 5 mg at night, which she actually was taking at home and she has some elevated blood sugars and her Semglee will be adjusted appropriat ely. HUSTON/TROY RESTREPO: 05/27/2022 19:32:43Voice ID: [id number] Report ID: [id number]
[2022-05-28] MEDS: METOPROLOL XL 100 MG TAB PO SCH (05:07)
[2022-05-28] MEDS: INSULIN -REGULAR HUMAN 50 UNIT/0.5 ML ML SQ SCH ×4 (07:30→20:27)
[2022-05-28] MEDS: ENOXAPARIN 40 MG/0.4 ML SQ SCH (07:53)
[2022-05-28] MEDS: LOSARTAN/HCTZ 50-12.5 PO SCH (08:03)
[2022-05-28] MEDS: INSULIN GLARGINE 100 UNIT/ML SQ SCH ×2 (08:03→20:28)
[2022-05-28] MEDS: FUROSEMIDE 20 MG TABLET PO SCH ×2 (08:04→17:59)
[2022-05-28] MEDS: PRIMIDONE 50 MG TAB PO SCH ×2 (08:04→20:28)
[2022-05-28] MEDS: CIPROFLOXACIN HCL 500 MG TAB PO SCH ×2 (08:04→20:27)
[2022-05-28] MEDS: METFORMIN ER 500 MG TAB PO SCH ×2 (08:04→17:59)
[2022-05-28] MEDS: allopurinoL 100 MG TAB PO SCH (08:05)
[2022-05-28] MEDS: ASPIRIN EC 81 MG TAB PO SCH (08:05)
[2022-05-28] MEDS: FE SULF/FA/VIT B COMP & C TAB PO SCH (08:05)
[2022-05-28] MEDS: FERROUS SULFATE 325 MG TAB PO SCH (08:05)
[2022-05-28] MEDS: CRANBERRY FRUIT EXTRACT 200 MG CAP PO SCH ×2 (08:05→20:28)
[2022-05-28] MEDS: DULOXETINE 30 MG CAP PO SCH (08:06)
[2022-05-28] MEDS: ONDANSETRON 4 MG (ODT) TAB PO PRN (12:18)
--- NOTE | 2022-05-28 15:45 | RAD REPORT ---
EXAM DESCRIPTION: RAD - Abdomen 1 View (KUB) - 05/28/2022 3:04 pm CLINICAL HISTORY: R/O obstruction COMPARISON: No comparisonsChest For Pe Angio dated 03/21/2022 FINDINGS: Nonobstructive bowel gas pattern. No acute osseous abnormality.Visualized lungs are unrema rkable.No abnormal calcifications. Right hip arthroplasty. IMPRESSION: Nonobstructive bowel gas pattern.
[2022-05-28] MEDS: JUVEN PACKET PO SCH (20:28)
[2022-05-28] MEDS: ATORVASTATIN 40 MG TAB PO SCH (20:28)
[2022-05-28] MEDS: MELATONIN 5 MG TABLET PO PRN (20:30)
[2022-05-28] MEDS: HYDROCODONE/APAP 7.5/325 MG TAB PO PRN (22:05)
--- NOTE | 2022-05-28 22:49 | PN ---
Date of Progress Note: 05/28/2022 Uwnn-Aq-Mfae Progress Note Visit Time Of Service: 1:30 p.m. Subjective: Ms. Spencer is resting in bed. She did report some nausea and vomiting this morning and be lieves it is related to metformin and she has had that previously with metformin 1000 mg twice daily where she has nausea and vomiting. Her blood sugars have been elevated and her insulin doses have be en adjusted. Review of Systems: As noted some nausea and vomiting, but no humza myalgias or arthralgias. She has improved pain contr ol in the right hip. She did have a KUB x-ray done given nausea and vomiting. The study showed a no nobstructive bowel gas pattern. Physical Examination: Vital Signs: Blood pressure 142/53, pulse is 96, respiratory rate 16, and temperature 98.1. She had orthostatics earlier today. While sitting blood pressure 135/52, pulse 95 and while standing blood pressure dropped to 73/50 with pulse of 97 and she did become symptomatic and was able to sit back do wn without any problems. HEENT: She is normocephalic, atraumatic. Sclerae anicteric. Oropharynx is moist. Neck: Supple. Chest: Clear. Heart: Regular. Extremities: No significant edema or cyanosis. She does have mild swelling in the right lower extre mity where her right hip fracture surgery was done. Laboratory Studies: No new laboratory studies since yesterday, except blood glucose ranged from 181 up to 350. Medications: [place] 7.5 every 4 hours as needed, allopurinol 100 mg daily, aspirin 81 mg daily, Lipit or 40 mg at bedtime, Cipro 500 mg twice daily, duloxetine 60 mg daily, Lovenox 40 mg subcutaneously d aily, ferrous sulfate 325 mg daily, Lasix 20 mg twice daily, Semglee 35 units at breakfast and 20 uni ts at night, metformin decreased to 500 mg twice daily, Toprol 200 mg daily, melatonin 5 mg at bedtim e, multivitamin 1 tablet daily, Zofran 4 mg every 4 hours as needed, and Mysoline 150 mg twice daily. Current Functional Status: Ms. Spencer was able to perform owk-ky-wgxny transfers with minimum assistan ce and stand pivot transfers with minimum assistance using a rolling walker. She ambulated 10 feet, 25 feet, 8 feet 4 times, and 20 feet with minimum assistance using a rolling walker. She needed exte nded rest breaks. With speech therapy, she demonstrated short-term recall of 3 of 4 unrelated object s during a space interval of time at 2 minutes and 5 minutes. Progress Towards Rehabilitation Goals: Ms. Spencer is making slow progress as she has just started in r ehabilitation unit of 2 days and she did have some uncontrolled blood sugars and difficulty with metf ormin, potentially contributing to nausea and vomiting. She had some medication adjustments and has Zofran on board, which is helping. Assessment: Ms. Spencer is a 77-year-old patient in the rehabilitation unit following a right hip fract ure status post surgical repair. She has hypertension, dyslipidemia, diabetes mellitus, transient is chemic attacks, moderate obesity, moderate anemia, nausea, and vomiting. Plan: 1.Physical, occupational, and speech therapy 3.5 hours, 5 of 7 days. 2.Semglee will be 25 units with breakfast and 20 units at night. 3.Metformin 500 mg twice daily. 4.Toprol continue 200 mg twice daily for hypertension. 5.Primidone 150 mg daily at night for essential tremor. 6.Lovenox 40 mg daily for DVT prophylaxis. 7.Cymbalta for depression. 8.Lipitor for dyslipidemia. 9.Continue allopurinol for gout and [place] for pain. Comorbids That Continue To Impact Rehabilitation Process: She does have nausea and vomiting, likely related to metformin that has been decreased and she is on Zofran. Her Semglee insulin has been increased. She has a potential urinary tract infection and she is on Cipro. Cultures are pending. BETZAIDA/TROY Voice ID: [id number] Report ID: [id number]
[2022-05-29] MEDS: ONDANSETRON 4 MG (ODT) TAB PO PRN (01:38)
[2022-05-29] MEDS: METOPROLOL XL 100 MG TAB PO SCH (05:05)
[2022-05-29 06:36] LABS: Absolute Lymphocytes (CBC) 2.3 K/uL (0.7-4.9); Hematocrit 29.9 % (36.0-45.0); Lymphocytes % 33.2 % (15.3-44.8); MCV 96.7 fL (80-100); MPV 8.1 fL (7.6-11.3); RBC Red Blood Cell Count 3.09 M/uL (3.86-4.86)
[2022-05-29 07:00] LABS: Albumin 2.5 g/dL (3.4-5.0); Magnesium 1.7 mg/dL (1.6-2.4); Potassium 3.6 mEq/L (3.5-5.1); Prealbumin 17.3 mg/dL (20-40)
[2022-05-29] MEDS: INSULIN -REGULAR HUMAN 50 UNIT/0.5 ML ML SQ SCH ×4 (07:30→20:17)
[2022-05-29] MEDS: DULOXETINE 30 MG CAP PO SCH (07:39)
[2022-05-29] MEDS: ENOXAPARIN 40 MG/0.4 ML SQ SCH (07:39)
[2022-05-29] MEDS: JUVEN PACKET PO SCH ×2 (07:39→20:17)
[2022-05-29] MEDS: INSULIN GLARGINE 100 UNIT/ML SQ SCH ×2 (07:39→20:17)
[2022-05-29] MEDS: METFORMIN ER 500 MG TAB PO SCH ×2 (07:40→17:33)
[2022-05-29] MEDS: FUROSEMIDE 20 MG TABLET PO SCH ×2 (07:40→17:33)
[2022-05-29] MEDS: PRIMIDONE 50 MG TAB PO SCH ×2 (07:41→20:16)
[2022-05-29] MEDS: allopurinoL 100 MG TAB PO SCH (07:41)
[2022-05-29] MEDS: CRANBERRY FRUIT EXTRACT 200 MG CAP PO SCH ×2 (07:41→20:16)
[2022-05-29] MEDS: FE SULF/FA/VIT B COMP & C TAB PO SCH (07:41)
[2022-05-29] MEDS: FERROUS SULFATE 325 MG TAB PO SCH (07:41)
[2022-05-29] MEDS: CIPROFLOXACIN HCL 500 MG TAB PO SCH ×2 (07:41→20:16)
[2022-05-29] MEDS: ASPIRIN EC 81 MG TAB PO SCH (07:42)
[2022-05-29] MEDS: LOSARTAN/HCTZ 50-12.5 PO SCH (08:00)
[2022-05-29] MEDS: HYDROCODONE/APAP 7.5/325 MG TAB PO PRN (17:35)
[2022-05-29] MEDS: MELATONIN 5 MG TABLET PO PRN (20:16)
[2022-05-29] MEDS: ATORVASTATIN 40 MG TAB PO SCH (20:16)
[2022-05-29] MEDS: clonazePAM 0.5 MG TAB PO PRN (22:09)
--- NOTE | 2022-05-29 23:22 | PN ---
Date of Progress Note: 05/29/2022 Time: 1:30 p.m. Subjective: Ms. Spencer is resting comfortably in bed. She is in no acute distress. She is normocepha lic, atraumatic. Sclerae anicteric. In terms of subjective, no complaints there. Review of Systems: No fevers, chills, nausea, vomiting. She did have some nausea yesterday, but that has all resolved a nd KUB did show a nonobstructive bowel pattern. Physical Examination: Vital Signs: Blood pressure 121/51, pulse 83, respiratory rate 16 to 18, temperature 97.6. In terms of orthostatics, lying blood pressure 137/61, pulse 75; sitting blood pressure 135/63, pulse 76; sta nding blood pressure 102/50, pulse 91. General: Ms. Loulou Spencer is in no acute distress. Pain is well managed. Skin: Her right hip surgical site shows good hemostasis. Mild edema in the right lower extremity. Laboratory Studies: White blood cell count 6.9, hemoglobin 10.0, platelets 380. Chemistries: Sodiu m 133, potassium 3.6, chloride 92, carbon dioxide 37, BUN 34, creatinine 1.29, glucose ranged from 16 6 to 333, calcium 9.7. Magnesium 1.7. Prealbumin 17.3. Imaging: No new x-ray images. KUB was 119. No obstructive bowel pattern. Medications: Medications are unchanged, remain the same from yesterday including antibiotics for pre sumed urinary tract infection. Current Functional Status: Today, she ambulated 10 feet 5 times and 25 feet twice with contact guard assistance using a rolling walker. She did have extended rest breaks. She performed supine to sit transfers with minimum assistance and multiple [id number] transfers with standby assistance. Verba l cues were required with speech therapy. She did have teaching on internal and external memory stra tegies. She did recall 4 pieces of unrelated information without cues, divided and alternating atten tion tasks were used with 80% accuracy and minimum assistance. Progress Towards Rehabilitation Goals: Ms. Spencer is making fair progress towards her goals of becomin g modified independent with upper and lower body dressing, transferring, toileting, ambulating at gio household distances 50 feet up to perhaps 250 feet with modified independence, going up and down 5 steps with modified independence, and performing cognitive functioning with modified independence to independence. Assessment: Ms. Spencer is a 77-year-old patient in the rehabilitation unit with right hip fracture sta tus post surgical repair. She has dyslipidemia, hypertension, diabetes mellitus, transient ischemic attacks, moderate obesity, moderate anemia, nausea and vomiting, which have resolved. Plan: 1.Continue physical, occupational, and speech therapy 3.5 hours 5 of 7 days. 2.Semglee insulin was adjusted and is currently 35 units with breakfast and 20 units at night. 3.Metformin is 500 mg twice daily. 4.Toprol 200 mg twice daily. 5.Primidone 150 mg twice daily for benign essential tremor. 6.Lovenox 40 mg subcutaneously daily for DVT prophylaxis. 7.Cymbalta for depression. 8.Lipitor for dyslipidemia. Comorbidities That Continue To Impact Rehabilitation Process: At this point, her nausea has improved as metformin dose was decreased, Semglee dosage was increased. She is doing better from that perspe ctive. LB/BRITTANIL Voice ID: [id number] Report ID: [id number]
[2022-05-30] MEDS: METOPROLOL XL 100 MG TAB PO SCH (05:30)
[2022-05-30] MEDS: INSULIN -REGULAR HUMAN 50 UNIT/0.5 ML ML SQ SCH ×4 (07:30→20:44)
[2022-05-30] MEDS: METFORMIN ER 500 MG TAB PO SCH ×2 (07:47→17:33)
[2022-05-30] MEDS: INSULIN GLARGINE 100 UNIT/ML SQ SCH ×2 (07:47→20:45)
[2022-05-30] MEDS: ENOXAPARIN 40 MG/0.4 ML SQ SCH (07:47)
[2022-05-30] MEDS: CRANBERRY FRUIT EXTRACT 200 MG CAP PO SCH ×2 (07:48→20:43)
[2022-05-30] MEDS: JUVEN PACKET PO SCH ×2 (07:48→20:44)
[2022-05-30] MEDS: DULOXETINE 30 MG CAP PO SCH (07:48)
[2022-05-30] MEDS: FE SULF/FA/VIT B COMP & C TAB PO SCH (07:48)
[2022-05-30] MEDS: PRIMIDONE 50 MG TAB PO SCH ×2 (07:48→20:44)
[2022-05-30] MEDS: FUROSEMIDE 20 MG TABLET PO SCH ×2 (07:49→17:33)
[2022-05-30] MEDS: FERROUS SULFATE 325 MG TAB PO SCH (07:49)
[2022-05-30] MEDS: CIPROFLOXACIN HCL 500 MG TAB PO SCH ×2 (07:49→20:43)
[2022-05-30] MEDS: ASPIRIN EC 81 MG TAB PO SCH (07:49)
[2022-05-30] MEDS: allopurinoL 100 MG TAB PO SCH (07:49)
[2022-05-30] MEDS: LOSARTAN/HCTZ 50-12.5 PO SCH (08:00)
--- NOTE | 2022-05-30 08:47 | P.RH.PN ---
Estimated Length of Stay: 12 Expected Discharge Date: 06/06/22 Discharge Disposition Plan: Home Family Support: Yes Retirement Goal: Mobility, Transfers, Self Care Vital Signs: Last Vital Signs Temp 97.1 F 05/29/22 21:05 Pulse 86 05/30/22 07:49 Resp 18 05/29/22 21:05 BP 154/72 H 05/30/22 07:49 Pulse Ox 94 05/29/22 21:05 Laboratory: Laboratory Last Values WBC 6.90 thou/uL (4.3-10.9) 05/29/22 05:50 RBC 3.09 M/uL (3.86-4.86) L 05/29/22 05:50 Hgb 10.0 g/dL (12.0-15.0) L 05/29/22 05:50 Hct 29.9 % (36.0-45.0) L 05/29/22 05:50 MCV 96.7 fL (80-100) 05/29/22 05:50 MCH 32.4 pg (27.0-35.0) 05/29/22 05:50 MCHC 33.5 g/dL (32.0-36.0) 05/29/22 05:50 RDW 14.3 % (12.1-15.2) 05/29/22 05:50 Plt Count 380 thou/uL (152-406) 05/29/22 05:50 MPV 8.1 fL (7.6-11.3) 05/29/22 05:50 Neutrophils % 48.9 % (41.7-73.7) 05/29/22 05:50 Lymphocytes % 33.2 % (15.3-44.8) 05/29/22 05:50 Monocytes % 11.3 % (3.3-12.3) 05/29/22 05:50 Eosinophils % 5.3 % (0-4.4) H 05/29/22 05:50 Basophils % 1.3 % (0-1.3) 05/29/22 05:50 Absolute Neutrophils 3.4 K/uL (1.8-8.0) 05/29/22 05:50 Absolute Lymphocytes 2.3 K/uL (0.7-4.9) 05/29/22 05:50 Absolute Monocytes 0.8 K/uL (0.1-1.3) 05/29/22 05:50 Absolute Eosinophils 0.4 K/uL (0-0.5) 05/29/22 05:50 Absolute Basophils 0.1 K/uL (0-0.5) 05/29/22 05:50 Sodium 133 mEq/L (136-145) L 05/29/22 05:55 Potassium 3.6 mEq/L (3.5-5.1) 05/29/22 05:55 Chloride 92 mEq/L (98-107) L 05/29/22 05:55 Carbon Dioxide 37 mEq/L (21-32) H 05/29/22 05:55 Anion Gap 7.6 mEq/L (5.0-15.0) 05/29/22 05:55 BUN 34 mg/dL (7-18) H 05/29/22 05:55 Creatinine 1.29 mg/dL (0.55-1.02) H 05/29/22 05:55 Est GFR (CKD-EPI) 43 ml/min (=/>90) L 05/29/22 05:55 Glucose 169 mg/dL (74-106) H 05/29/22 05:55 POC Glucose 165 mg/dL (65-120) H 05/30/22 07:15 Calcium 9.7 mg/dL (8.5-10.1) 05/29/22 05:55 Magnesium 1.7 mg/dL (1.6-2.4) 05/29/22 05:55 Albumin 2.5 g/dL (3.4-5.0) L 05/29/22 05:55 Prealbumin 17.3 mg/dL (20-40) L 05/29/22 05:55 Urine Color Light-yellow (Yellow) 05/26/22 12:00 Urine Clarity Turbid (Clear) H 05/26/22 12:00 Urine pH 8.5 (5.0-7.0) H 05/26/22 12:00 Ur Specific [place] 1.010 (1.005-1.030) 05/26/22 12:00 Glucose (UA)(Auto) Negative (Negative) 05/26/22 12:00 Urine Ketones Negative (Negative) 05/26/22 12:00 Urine Blood Negative (Negative) 05/26/22 12:00 Urine Nitrite 2+ (Negative) H 05/26/22 12:00 Urine Bilirubin Negative (Negative) 05/26/22 12:00 Urine Urobilinogen Normal (Normal) 05/26/22 12:00 Ur Leukocyte Esterase 250 Eliza/uL (Negative) H 05/26/22 12:00 Urine RBC <5 /HPF (None Seen) 05/26/22 12:00 Urine WBC <5 /HPF (<5) 05/26/22 12:00 Ur Squamous Epith Cells <5 /HPF (None Seen) 05/26/22 12:00 U Non-Squamous Epi Cells <5 /HPF (None Seen) 05/26/22 12:00 Urine Bacteria None seen /HPF (<20) 05/26/22 12:00 Urine Mucus Slight /HPF (None Seen) 05/26/22 12:00 Urine Culture Reflexed Not needed 05/26/22 12:00 Urine Total Protein Negative (Negative) 05/26/22 12:00 Weight: 235 lb Wound Present: Yes Closed Surgical Incision Present: Yes Negative Pressure Wound Therapy Present: No Physician Update: Right femoral neck fracture s/p repair. Labs reviewed and mild anemia treated the protein and iron. Mild cognitive impairment and is working well with speech therapy. Min assistance with bed mobility and transfers. Only 25' with RW likely limited by pain. Doing well with ADLs but wants someone to do things for her. Summary: Patient's care plan and jail goals have been reviewed and revised as necessary. Please see the Rehabilitation Signature page for all necessary signatures.
[2022-05-30] MEDS: ONDANSETRON 4 MG (ODT) TAB PO PRN (09:05)
[2022-05-30] MEDS: ATORVASTATIN 40 MG TAB PO SCH (20:43)
[2022-05-30] MEDS: GABAPENTIN 100 MG CAP PO SCH (20:43)
[2022-05-31] MEDS: METOPROLOL XL 100 MG TAB PO SCH (05:18)
[2022-05-31] MEDS: ONDANSETRON 4 MG (ODT) TAB PO PRN (07:55)
[2022-05-31] MEDS: JUVEN PACKET PO SCH ×2 (08:00→20:00)
[2022-05-31] MEDS: INSULIN -REGULAR HUMAN 50 UNIT/0.5 ML ML SQ SCH ×4 (08:26→20:14)
[2022-05-31] MEDS: INSULIN GLARGINE 100 UNIT/ML SQ SCH ×2 (08:30→20:14)
[2022-05-31] MEDS: ENOXAPARIN 40 MG/0.4 ML SQ SCH (08:31)
[2022-05-31] MEDS: FUROSEMIDE 20 MG TABLET PO SCH ×2 (08:34→16:58)
[2022-05-31] MEDS: PRIMIDONE 50 MG TAB PO SCH ×2 (08:34→20:13)
[2022-05-31] MEDS: DULOXETINE 30 MG CAP PO SCH (08:35)
[2022-05-31] MEDS: METFORMIN ER 500 MG TAB PO SCH ×2 (08:35→16:58)
[2022-05-31] MEDS: GABAPENTIN 100 MG CAP PO SCH ×2 (08:36→20:13)
[2022-05-31] MEDS: CRANBERRY FRUIT EXTRACT 200 MG CAP PO SCH ×2 (08:36→20:13)
[2022-05-31] MEDS: FERROUS SULFATE 325 MG TAB PO SCH (08:36)
[2022-05-31] MEDS: allopurinoL 100 MG TAB PO SCH (08:36)
[2022-05-31] MEDS: FE SULF/FA/VIT B COMP & C TAB PO SCH (08:36)
[2022-05-31] MEDS: ASPIRIN EC 81 MG TAB PO SCH (08:36)
[2022-05-31] MEDS: LOSARTAN/HCTZ 50-12.5 PO SCH (08:37)
[2022-05-31] MEDS: CIPROFLOXACIN HCL 500 MG TAB PO SCH ×2 (08:37→20:14)
[2022-05-31] MEDS: ATORVASTATIN 40 MG TAB PO SCH (20:13)
[2022-05-31] MEDS ORDERED: IBUPROFEN 400 MG TAB PO PRN (22:29)
[2022-05-31] MEDS ORDERED: TRAMADOL HCL 50 MG TAB PO PRN (22:32)
[2022-06-01] MEDS: METOPROLOL XL 100 MG TAB PO SCH (05:04)
[2022-06-01] MEDS: LOSARTAN/HCTZ 50-12.5 PO SCH (08:00)
[2022-06-01] MEDS: JUVEN PACKET PO SCH ×2 (08:00→20:00)
[2022-06-01] MEDS: ENOXAPARIN 40 MG/0.4 ML SQ SCH (08:05)
[2022-06-01] MEDS: INSULIN -REGULAR HUMAN 50 UNIT/0.5 ML ML SQ SCH ×4 (08:06→20:20)
[2022-06-01] MEDS: ONDANSETRON 4 MG (ODT) TAB PO PRN (08:07)
[2022-06-01] MEDS: FUROSEMIDE 20 MG TABLET PO SCH ×2 (08:08→17:00)
[2022-06-01] MEDS: INSULIN GLARGINE 100 UNIT/ML SQ SCH ×2 (08:08→20:20)
[2022-06-01] MEDS: METFORMIN ER 500 MG TAB PO SCH ×2 (08:09→17:23)
[2022-06-01] MEDS: ASPIRIN EC 81 MG TAB PO SCH (08:09)
[2022-06-01] MEDS: DULOXETINE 30 MG CAP PO SCH (08:09)
[2022-06-01] MEDS: GABAPENTIN 100 MG CAP PO SCH ×2 (08:09→20:18)
[2022-06-01] MEDS: PRIMIDONE 50 MG TAB PO SCH ×2 (08:09→20:18)
[2022-06-01] MEDS: CRANBERRY FRUIT EXTRACT 200 MG CAP PO SCH ×2 (08:10→20:18)
[2022-06-01] MEDS: FERROUS SULFATE 325 MG TAB PO SCH (08:10)
[2022-06-01] MEDS: allopurinoL 100 MG TAB PO SCH (08:10)
[2022-06-01] MEDS: FE SULF/FA/VIT B COMP & C TAB PO SCH (08:10)
[2022-06-01] MEDS: DOCUSATE NA/SENNA CONC 1 TAB PO PRN (20:18)
[2022-06-01] MEDS: ATORVASTATIN 40 MG TAB PO SCH (20:18)
[2022-06-02] MEDS: METOPROLOL XL 100 MG TAB PO SCH (05:12)
[2022-06-02] MEDS: ENOXAPARIN 40 MG/0.4 ML SQ SCH (07:09)
[2022-06-02] MEDS: ONDANSETRON 4 MG (ODT) TAB PO PRN ×2 (07:09→17:08)
[2022-06-02] MEDS: LOSARTAN/HCTZ 50-12.5 PO SCH (08:00)
[2022-06-02] MEDS: JUVEN PACKET PO SCH ×2 (08:00→20:00)
[2022-06-02] MEDS: INSULIN GLARGINE 100 UNIT/ML SQ SCH ×2 (08:24→20:25)
[2022-06-02] MEDS: INSULIN -REGULAR HUMAN 50 UNIT/0.5 ML ML SQ SCH ×4 (08:24→20:24)
[2022-06-02] MEDS: FUROSEMIDE 20 MG TABLET PO SCH ×2 (08:25→17:11)
[2022-06-02] MEDS: METFORMIN ER 500 MG TAB PO SCH ×2 (08:25→17:09)
[2022-06-02] MEDS: ASPIRIN EC 81 MG TAB PO SCH (08:26)
[2022-06-02] MEDS: allopurinoL 100 MG TAB PO SCH (08:26)
[2022-06-02] MEDS: CRANBERRY FRUIT EXTRACT 200 MG CAP PO SCH ×2 (08:26→20:24)
[2022-06-02] MEDS: GABAPENTIN 100 MG CAP PO SCH ×2 (08:26→20:23)
[2022-06-02] MEDS: FERROUS SULFATE 325 MG TAB PO SCH (08:26)
[2022-06-02] MEDS: DULOXETINE 30 MG CAP PO SCH (08:26)
[2022-06-02] MEDS: FE SULF/FA/VIT B COMP & C TAB PO SCH (08:26)
[2022-06-02] MEDS: PRIMIDONE 50 MG TAB PO SCH ×2 (08:28→20:24)
--- NOTE | 2022-06-02 09:17 | P.CNS ---
Date of Consult: 06/02/22 Reason for Consult: painful toenails Chief Complaint: Painful toenails Allergies Sulfa (Sulfonamide Antibiotics) Adverse Reaction (Verified 05/26/22 16:42) see comment Home Medications: Allopurinol 100 mg PO DAILY 05/20/22 Aspirin [Aspirin EC 81 MG] 1 tab PO DAILY 05/20/22 Atorvastatin Calcium [Lipitor] 40 mg PO BEDTIME 05/20/22 Duloxetine HCl 60 mg PO DAILY 05/20/22 Furosemide 1 tab PO BID 05/20/22 Insulin -Regular Human [Novolin -R] See Protocol SQ TID PRN 05/20/22 Losartan/Hydrochlorothiazide [Losartan-Hctz 50-12.5 mg Tab] 1 tab PO DAILY 05/20/22 Metformin ER [Glucophage ER*] 1,000 mg PO BID 05/20/22 Metoprolol Succinate [Toprol Xl] 1 tab PO DAILY 05/20/22 Primidone 150 mg PO BID 05/20/22 Enoxaparin Sodium [Lovenox 40 MG INJ*] 40 mg SQ DAILY syr 05/26/22 Hydrocodone 7.5/APAP 325 [[place] 7.5/325 mg*] 1 tab PO Q4H PRN tab 05/26/22 Insulin Glargine,Hum.rec.anlog [Semglee] 15 units SQ BEDTIME 05/26/22 Insulin Glargine,Hum.rec.anlog [Semglee] 30 units SQ BREAKFAST 05/26/22 - Past Medical/Surgical History Diabetic: Yes -: Diabetes mellitus type 2insulin-dependent -: Hypertension -: Hyperlipidemia -: TIA -: Cholecystectomy -: Hysterectomy -: Left knee arthroscopy -: Wrist surgery -: JAGDISH cataract surgery -: fatty tumors removed from abdomen Psychosocial/ Personal History: Patient lives at home with her - Family History Father Medical History: Heart disease Mother Medical History: Heart disease - Social History Alcohol use: No CD- Drugs: No Caffeine use: No Place of Residence: Home Review of Systems 10-point ROS is otherwise unremarkable Physical Examination Temp Pulse Resp BP Pulse Ox 97.7 F 82 17 171/75 H 93 06/02/22 08:59 06/02/22 08:59 06/02/22 08:59 06/02/22 08:59 06/02/22 08:59 General: Alert, In no apparent distress, Oriented x3 Cardiovascular: No edema, Abnormal pulses (0/4 dp/pt pulse bilateral) Capillary refill: <2 Seconds Musculoskeletal: No clubbing, No swelling, No contractures, No erythema, No tenderness, No warmth Integumentary: Other (Thickened hypertrophic nails with subungual debris x 10) Neurological: Abnormal sensation - Problems (1) Tinea unguium Current Visit: Yes Status: Acute (2) Type 2 diabetes mellitus with diabetic peripheral angiopathy without gangrene Current Visit: Yes Status: Acute Conclusions/Impression: Mechanical debridement of nails at bedside
[2022-06-02 20:23] LABS: Specific Gravity 1.011 (1.005-1.030); Urine Bacteria <20 /HPF (<20); Urine Bilirubin NEGATIVE (Negative); Urine Blood Negative (Negative); Urine Clarity Turbid (Clear); Urine Color Light-Yellow (Yellow); Urine Glucose NEGATIVE (Negative); Urine Mucus Slight /HPF (None Seen); Urine Protein NEGATIVE (Negative); Urine RBC <5 /HPF (None Seen); Urine Urobilinogen Normal (Normal); Urine WBC Clump Moderate /HPF (None Seen)
[2022-06-02] MEDS: MELATONIN 5 MG TABLET PO PRN (20:23)
[2022-06-02] MEDS: DOCUSATE NA/SENNA CONC 1 TAB PO PRN (20:23)
[2022-06-02] MEDS: HYDROCODONE/APAP 7.5/325 MG TAB PO PRN (20:23)
[2022-06-02] MEDS: ATORVASTATIN 40 MG TAB PO SCH (20:24)
[2022-06-02] MEDS: clonazePAM 0.5 MG TAB PO PRN (22:00)
--- NOTE | 2022-06-03 02:04 | PN ---
Date of Progress Note: 06/02/2022 [facility] Progress Note Visit Time Of Service: 1:30 p.m. Subjective: Ms. Spencer is doing well, resting in bed. She is in no significant distress. Pain is well managed. She has no new complaints. Review of Systems: She reports no significant swelling in the right lower extremity where she has her right hip surgery. No noted difficulty with sleep, bowel movements or food. Physical Examination: Vital Signs: Blood pressure 112/50, pulse up to 103, respiratory rate 16, temperature 97.7. General: Ms. Spencer is resting comfortably. She is in no significant distress. Extremities: Right hip surgical site has good hemostasis. No significant swelling or clubbing or cyanosis in the right lower extremity. No evidence of deep vein thrombosis in her calf. Laboratory Studies: No new laboratory studies except blood glucose ranged from 105 to 161. Imaging: No new x-ray imaging. Consultations: She was seen by Dr. Edson Merida on the podiatry service. He has diagnosed as tinea unguium and he did mechanical debridement of nails at bedside. Also, diabetic peripheral neuropathy without gangrene was diagnosed. Current Functional Status: Today, she ambulated with standby assistance using a rolling walker. Emphasis placed on upright posture. With occupational therapy, she completed bathing, dressing, grooming, toileting independently with grab bars, toilet transfers, shower transfer, and wheelchair to edge of bed done independently. She tolerated 5 minutes of standing with 3 rest breaks. With speech therapy, working memory was used to plan tasks in order to improve ADLs and IADLs. Structured planning task completed with 92% accuracy. She did have improved use of internal and external memory strategies for recall tasks. Progress Towards Rehabilitation Goals: Ms. Spencer is making very good progress towards her goals of becoming independent with upper and lower body dressing, transferring, toileting, showering, ambulating 250 feet with independence and up and down 10 steps with independence. Also to complete cognitive tasks with independence. Assessment: Ms. Spencer is a 77-year-old patient in the rehabilitation unit with a right hip fracture, status post surgical repair. She has dyslipidemia, hypertension, diabetes, transient ischemic attacks, moderate obesity, moderate anemia, and resolving nausea and vomiting. Plan: 1. Continue physical, occupational and speech therapy 3.5 hours for 5 of 7 days. 2. Continue Semglee insulin and metformin for diabetes mellitus control. 3. Continue Toprol 200 mg twice daily for blood pressure, heart rate control. 4. Continue primidone 150 mg twice daily for essential tremor. 5. Continue Lovenox 40 mg subcutaneously daily for DVT prophylaxis. 6. Cymbalta for depression. 7. Lipitor for dyslipidemia. Comorbidities That Continue To Impact Rehabilitation Process: She is doing much better with insulin control and it is still controlling her blood sugars and not having much nausea as she is taking Zofran prior to meals. BETZAIDA/TROY Voice ID: [id number] Report ID: [id number] ANNA
[2022-06-03] MEDS: METOPROLOL XL 100 MG TAB PO SCH (05:08)
[2022-06-03] MEDS ORDERED: BISACODYL 10 MG RECTAL SUPP PR PRN (05:13)
[2022-06-03] MEDS: ONDANSETRON 4 MG (ODT) TAB PO PRN (06:49)
[2022-06-03] MEDS: INSULIN -REGULAR HUMAN 50 UNIT/0.5 ML ML SQ SCH ×4 (07:30→19:57)
[2022-06-03] MEDS: PRIMIDONE 50 MG TAB PO SCH ×2 (07:50→19:57)
[2022-06-03] MEDS: ENOXAPARIN 40 MG/0.4 ML SQ SCH (07:50)
[2022-06-03] MEDS: INSULIN GLARGINE 100 UNIT/ML SQ SCH ×2 (07:50→19:55)
[2022-06-03] MEDS: ASPIRIN EC 81 MG TAB PO SCH (07:51)
[2022-06-03] MEDS: CRANBERRY FRUIT EXTRACT 200 MG CAP PO SCH ×2 (07:51→19:58)
[2022-06-03] MEDS: FE SULF/FA/VIT B COMP & C TAB PO SCH (07:52)
[2022-06-03] MEDS: METFORMIN ER 500 MG TAB PO SCH ×2 (07:52→16:55)
[2022-06-03] MEDS: FERROUS SULFATE 325 MG TAB PO SCH (07:52)
[2022-06-03] MEDS: DULOXETINE 30 MG CAP PO SCH (07:52)
[2022-06-03] MEDS: GABAPENTIN 100 MG CAP PO SCH ×2 (07:52→19:58)
[2022-06-03] MEDS: allopurinoL 100 MG TAB PO SCH (07:52)
[2022-06-03] MEDS: LOSARTAN/HCTZ 50-12.5 PO SCH (08:00)
[2022-06-03] MEDS: JUVEN PACKET PO SCH (08:00)
[2022-06-03] MEDS: FUROSEMIDE 20 MG TABLET PO SCH ×2 (09:00→17:07)
[2022-06-03] MEDS: MELATONIN 5 MG TABLET PO PRN (19:55)
[2022-06-03] MEDS: ATORVASTATIN 40 MG TAB PO SCH (19:58)
[2022-06-03] MEDS: HYDROCODONE/APAP 7.5/325 MG TAB PO PRN ×2 (19:58→23:42)
[2022-06-03] MEDS: AMINO ACIDS/PROTEIN HYDROLYS 30 ML LIQUID.PKT PO SCH (19:59)
[2022-06-03] MEDS: clonazePAM 0.5 MG TAB PO PRN (22:53)
--- NOTE | 2022-06-03 23:34 | PN ---
Date of Progress Note: 06/03/2022 [facility] Progress Note Time Of Service: 1:30 p.m. Subjective: Ms. Spencer is doing well, resting in bed. She denies any significant pain at her right hi p surgical site. She has no new complaints. Review of Systems: Aside from mild swelling in the right lower extremity, she does not have any significant pain at the right hip surgical site. No fevers or chills. No rash or psychiatric issues. No gastrointestinal i ssues. One issue she did say that last bowel movement was about 4 days ago. Normally at home it is every other day. She is getting stool softeners, laxatives and enema if need be and that may be in t he morning. Physical Examination: Vital Signs: Blood pressure 122/56, pulse of 102, respiratory rate 16, and temperature 97.9. General: Ms. Spencer is resting comfortably. She is in no significant distress. HEENT: She is normocephalic, atraumatic. Sclerae anicteric. Oropharynx is moist. Extremities: The right lower extremity has trace edema. The surgical site of the right hip has good hemostasis. Laboratory Studies: Complete blood count with differential done 7 days ago showed low hemoglobin of 10.0 and white blood cell count 6.9. Today blood sugars ranged from 125 to 298. X-ray/imaging: None new. Medications: Her medications have not changed. She is on Semglee insulin 20 units at bedtime and 35 units at breakfast, primidone 150 mg twice daily and she has Ultram for pain along with Senokot for constipation and also milk of magnesia and Dulcolax will be use as needed for constipation. Current Functional Status: Today she ambulated indoors and on outdoor surfaces, ambulating 200 feet twice with standby assistance using a rolling walker. She did ascend and descend a ramp with a rolli ng walker and standby assist. With occupational therapy, she did sit to stand transfers with wheelch air to edge of bed and did that with independence. With her speech therapy, she had short-term recal l of 4 unrelated items using internal memory strategies. She had cause and effect scenarios explaine d with 100% accuracy. Progress Towards Rehabilitation Goals: Ms. Spencer is making great progress towards her goals of becomi ng independent with upper and lower body dressing, toileting, transferring, ambulating household dist ances, going up and down 10 steps, and performing cognitive functioning independently. Assessment: Ms. Spencer is a 77-year-old patient in the rehabilitation unit with right hip fracture sta tus post surgical repair who is doing well with her physical, occupational, and speech therapy. She also has comorbids of hypertension, diabetes mellitus, dyslipidemia, transient ischemic attack, moder ate obesity, moderate anemia, and improved nausea and vomiting. Plan: 1.Continue with physical, occupational, and speech therapy for 3.5 hours, 5 of 7 days. 2.Continue with Semglee insulin for diabetes mellitus and oral hypoglycemic. 3.Continue with Toprol for heart rate control. 4.Continue primidone for essential tremor. 5.Continue Lovenox for DVT prophylaxis. 6.Continue Cymbalta for depression. 7.Continue Lipitor for dyslipidemia. Comorbids That Continue To Impact Her Rehabilitation Process: She is doing better overall. She stil l had some elevated blood sugars and insulin may be adjusted as needed. LB/MODL Voice ID: [id number] Report ID: [id number]
[2022-06-04] MEDS: METOPROLOL XL 100 MG TAB PO SCH (05:08)
[2022-06-04] MEDS: ENOXAPARIN 40 MG/0.4 ML SQ SCH (07:17)
[2022-06-04] MEDS: DULOXETINE 30 MG CAP PO SCH (07:18)
[2022-06-04] MEDS: INSULIN GLARGINE 100 UNIT/ML SQ SCH ×2 (07:19→21:35)
[2022-06-04] MEDS: FE SULF/FA/VIT B COMP & C TAB PO SCH (07:19)
[2022-06-04] MEDS: ASPIRIN EC 81 MG TAB PO SCH (07:19)
[2022-06-04] MEDS: FERROUS SULFATE 325 MG TAB PO SCH (07:20)
[2022-06-04] MEDS: METFORMIN ER 500 MG TAB PO SCH ×2 (07:20→17:41)
[2022-06-04] MEDS: GABAPENTIN 100 MG CAP PO SCH ×2 (07:20→21:36)
[2022-06-04] MEDS: CRANBERRY FRUIT EXTRACT 200 MG CAP PO SCH ×2 (07:20→21:36)
[2022-06-04] MEDS: allopurinoL 100 MG TAB PO SCH (07:20)
[2022-06-04] MEDS: PRIMIDONE 50 MG TAB PO SCH ×2 (07:20→21:36)
[2022-06-04] MEDS: INSULIN -REGULAR HUMAN 50 UNIT/0.5 ML ML SQ SCH ×4 (07:22→21:35)
[2022-06-04] MEDS: AMINO ACIDS/PROTEIN HYDROLYS 30 ML LIQUID.PKT PO SCH ×2 (07:22→21:37)
[2022-06-04] MEDS: LOSARTAN/HCTZ 50-12.5 PO SCH (08:00)
[2022-06-04] MEDS: ONDANSETRON 4 MG (ODT) TAB PO PRN (08:42)
[2022-06-04] MEDS: FUROSEMIDE 20 MG TABLET PO SCH ×2 (10:27→18:00)
--- NOTE | 2022-06-04 20:04 | PN ---
Date of Progress Note: 06/04/2022 Time Of Service: 1:30 p.m. Subjective: Ms. Spencer is doing well. She is excited about being able to go home in the morning. She has no new complaints. The right hip fracture site has good hemostasis and no pain. Review of Systems: Very mild swelling in right lower extremity. Again, no significant pain there. No psychiatric compl aints. No gastrointestinal complaints. Bowel movements are doing better and she says the food, de [place], is not very good. Physical Examination: Vital Signs: Blood pressure 111/57, pulse up to 100, respiratory rate 16, temperature 97, oxygen sat uration 95%. General: Ms. Spencer is resting comfortably. She is in no significant distress. HEENT: Normocephalic, atraumatic. Sclerae anicteric. Oropharynx pink and moist. Extremities: The right hip surgical site has good hemostasis. Mild edema in the right lower extremi ty. Laboratory Studies: Blood sugars ranged from 159 up to 294. X-ray/imaging: No new x-ray imaging. Medications: Unchanged. Current Functional Status: Today she ambulated 100 feet once and 180 feet twice independently using a rolling walker. She completed an 8 feet distance with 6 steps without an assistive device. She di d [id number] transfers independently. Multiple stand and pivot transfers independently with a rol ling walker. Huj-ij-efche transfers independently. She performed ADLs independently and transferred safely. With her speech, her BIMS from admission was 14 and today 15, which is full and normal. He r SLUMS test was 24/30 on admission, now 26/30. Progress Towards Rehabilitation Goals: Ms. Spencer has made excellent progress and is now at her goals set in rehabilitation, which is independent with upper and lower body dressing, toileting, transferri ng, and cognitive functioning and she is ready to be discharged home. Assessment And Plan: Ms. Spencer is a 77-year-old patient in the rehabilitation unit with right hip fra cture, status post surgical repair. She has done well and is ready to be discharged home. She has c omorbids of hypertension, diabetes, dyslipidemia, transient ischemic attack, moderate obesity, modera te anemia, and resolved nausea and vomiting. Plan: 1.For today continue physical, occupational, and speech therapy 3.5 hours for today. 2.Continue with insulin and oral hypoglycemics. 3.Continue with Toprol for heart rate control. 4.Continue with primidone for essential tremor. 5.Continue Lovenox for DVT prophylaxis. 6.Cymbalta for depression. 7.Lipitor for dyslipidemia. Comorbidities That Continue To Impact Rehabilitation Process: At this point, her comorbidities do no t stop her from doing very well and she is ready to be discharge home and will continue physical director apy via Home Health. BETZAIDA/TROY Voice ID: [id number] Report ID: [id number]
[2022-06-04] MEDS: ATORVASTATIN 40 MG TAB PO SCH (21:36)
[2022-06-04] MEDS: MELATONIN 5 MG TABLET PO PRN (21:36)
[2022-06-04] MEDS: clonazePAM 0.5 MG TAB PO PRN (23:54)
[2022-06-05] MEDS: METOPROLOL XL 100 MG TAB PO SCH (05:20)
[2022-06-05 07:00] VITALS: TEMP 97
[2022-06-05] MEDS: INSULIN -REGULAR HUMAN 50 UNIT/0.5 ML ML SQ SCH (07:05)
[2022-06-05] MEDS: ENOXAPARIN 40 MG/0.4 ML SQ SCH (07:06)
[2022-06-05] MEDS: LOSARTAN/HCTZ 50-12.5 PO SCH (08:00)
[2022-06-05] MEDS: AMINO ACIDS/PROTEIN HYDROLYS 30 ML LIQUID.PKT PO SCH (08:00)
[2022-06-05] MEDS: DULOXETINE 30 MG CAP PO SCH (08:24)
[2022-06-05] MEDS: ASPIRIN EC 81 MG TAB PO SCH (08:25)
[2022-06-05] MEDS: CRANBERRY FRUIT EXTRACT 200 MG CAP PO SCH (08:25)
[2022-06-05] MEDS: FE SULF/FA/VIT B COMP & C TAB PO SCH (08:25)
[2022-06-05] MEDS: METFORMIN ER 500 MG TAB PO SCH (08:25)
[2022-06-05] MEDS: FERROUS SULFATE 325 MG TAB PO SCH (08:25)
[2022-06-05] MEDS: allopurinoL 100 MG TAB PO SCH (08:26)
[2022-06-05] MEDS: GABAPENTIN 100 MG CAP PO SCH (08:26)
[2022-06-05] MEDS: PRIMIDONE 50 MG TAB PO SCH (08:26)
[2022-06-05] MEDS: INSULIN GLARGINE 100 UNIT/ML SQ SCH (08:31)
[2022-06-05] MEDS: FUROSEMIDE 20 MG TABLET PO SCH (08:34)
[2022-06-05 08:35] VITALS: BP 130/61
== END 2022-06-05 10:00 | disposition home health service (06) | DRG 560 ==
LOC: 5TH 09:30
PROVIDERS: ADMIT Psychiatry & Neurology Neurology with Special Qualifications in Child Neurology; ATTEND Psychiatry & Neurology Neurology with Special Qualifications in Child Neurology
PROC: 0HBRXZZ Excision of Toe Nail, External Approach (ICD-10-PCS; principal; 2022-06-02)
PROC: 0HBRXZZ Excision of Toe Nail, External Approach (ICD-10-PCS; 2022-06-02)
PROC: 0HBRXZZ Excision of Toe Nail, External Approach (ICD-10-PCS; 2022-06-02)
PROC: 0HBRXZZ Excision of Toe Nail, External Approach (ICD-10-PCS; 2022-06-02)
PROC: 0HBRXZZ Excision of Toe Nail, External Approach (ICD-10-PCS; 2022-06-02)
PROC: 0HBRXZZ Excision of Toe Nail, External Approach (ICD-10-PCS; 2022-06-02)
PROC: 0HBRXZZ Excision of Toe Nail, External Approach (ICD-10-PCS; 2022-06-02)
PROC: 0HBRXZZ Excision of Toe Nail, External Approach (ICD-10-PCS; 2022-06-02)
PROC: 0HBRXZZ Excision of Toe Nail, External Approach (ICD-10-PCS; 2022-06-02)
PROC: 0HBRXZZ Excision of Toe Nail, External Approach (ICD-10-PCS; 2022-06-02)
DX: S72.001D Fracture of unspecified part of neck of right femur, subsequent encounter for closed fracture with routine healing (principal); Z68.41 Body mass index [BMI] 40.0-44.9, adult; E11.51 Type 2 diabetes mellitus with diabetic peripheral angiopathy without gangrene; I10 Essential (primary) hypertension; E78.5 Hyperlipidemia, unspecified; G25.0 Essential tremor; D64.9 Anemia, unspecified; F32.A Depression, unspecified; M10.9 Gout, unspecified; E66.9 Obesity, unspecified; B35.1 Tinea unguium; R11.2 Nausea with vomiting, unspecified; Z86.73 Personal history of transient ischemic attack (TIA), and cerebral infarction without residual deficits
CPT/HCPCS: 36415; 74018; 80048; 81001; 82040; 82947; 83735; 84134; 85025; 92523; 97110; 97112; 97116; 97129; 97161; 97530; 97542; J1650; J1815; J1940; Q0162

== ENCOUNTER 2022-07-17 17:41 | Emergency (ER) | payer OTHER ==
--- OUTSIDE RECORDS SUMMARY | 2022-07-17 17:44 | XMS REPORT | Continuity of Care Document ---
:1945 Author Organization [facility] t Address [address] [place] [id number] Care Team Providers Name Role Phone Bigg Richter Attending Clinician Problems Condition Condition Condition Status Onset Resolution Last Treating Co mments Source Name Details Category Date Date Treatment Clinician Date Fall Fall Problem Active 2015-022022-05-17 Memor ia (finding) (finding) 12:54:04 l Active 00:00: Noah 12/07/2015 00 Problem 05/17/2022 [facility] Obstructiv Obstructi Problem Active 2022-05-17 Memoria e sleep ve sleep 06-04 12:54:04 l apnea apnea 00:00: [place] syndrome syndrome 00 (disorder) (disorder) Active 06/05/2015 Problem 05/17/2022 [facility] Amnesia Amnesia Problem Active 2022-05-17 Me moria (finding) (finding) 12:54:04 l Active [place] Problem 05/17/2022 [facility] 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 12:54:04 l s s Noah (disorder) (disorder) Active Problem 05/17/2022 [facility] Diabetes Diabetes Problem Active 2022-05-17 Memoria mellitus mellitus 12:54:04 l (disorder) (disorder) He rmann Active Problem 05/17/2022 [facility] Dizziness Dizziness Problem Active 2022-05-17 Memoria (finding) (finding) 12:54:04 l Active [place] Problem 05/17/2022 [facility] Dysarthria Dysarthri Problem Active 2022-05-17 Memoria (finding) a 12:54:04 l (finding) Noah Active Problem 05/17/2022 [facility] Hyperchole Hyperchol Problem Active 2022-05-17 Memoria sterolemia esterolemi 12:54:04 l (disorder) a Oscar n (disorder) Active Problem 05/17/2022 [facility] Hypertensi Hypertens Problem Active 2022-05-17 Memoria ve davi 12:54:04 l disorder, disorder, Herm promise systemic systemic arterial arterial (disorder) (disorder) Active Problem 05/17/2022 [facility] Morbid Morbid Problem Active 2022-05-17 Robert cheli obesity obesity 12:54:04 l (disorder) (disorder) He rmann Active Problem 05/17/2022 [facility] Neuropathy Problem Active 2022-05-17 M emoria (disorder) Neuropathy 12:54:04 l (disorder) Oscar n Active Problem 05/17/2022 [facility] Orthostati Orthostat Problem Active 2022-05-17 Memoria c ic 12:54:04 l hypotensio hypotensio He rmann n n (disorder) (disorder) Active Problem 05/17/2022 [facility] Tremor Tremor Problem Active 2022-05-17 Robert cheli (finding) (finding) 12:54:04 l Active [place] Problem 05/17/2022 [facility] Allergies, Adverse Reactions, Alerts Allergy Allergy Status Severity Reaction(s) Onset Inactive Treating Comm ents Source Name Type Date Date Clinician sulfa sulfa Active Memoria drugs drugs [facility] Social History Smoking Status Start Date Stop Date Source Tobacco smoking status [facility] Medications Ordered Filled Start Stop Current Ordering [...] TABLET BY l tablet 19:42: MOUTH IN [place] 00 THE MORNING AND 1 IN THE [...] 1-03 Instructio l tablet 17:16: ns, 02/10 [place] 00 tab PO BID 90 day, # 90 tab, 1 Refill(s), Pharmacy: [facility], 162.56, cm, 11/13/21 14:00:00 CDT, Height, 111.818, kg, 11/13/21 14:00:00 CDT, Weight gabapentin 2022-0 Yes See Memoria 600 mg oral 1-03 Instructio l tablet 17:16: ns, 02/10 [place] 00 tab PO BID 90 day, # 90 tab, 1 Refill(s), Pharmacy: [facility], 162.56, cm, 11/13/21 14:00:00 CDT, Height, 111.818, kg, 11/13/21 14:00:00 CDT, Weight gabapentin 2022-0 Yes See Memoria 600 mg oral 1-03 Instructio l tablet 17:16: ns, 02/10 [place] 00 tab PO BID 90 day, # 90 tab, 1 Refill(s), Pharmacy: [facility], 162.56, cm, 11/13/21 14:00:00 CDT, Height, 111.818, kg, 11/13/21 14:00:00 CDT, Weight gabapentin 2023-0 Yes See Memoria 600 mg oral 1-03 Instructio l tablet 17:16: ns, 1/2 [place] 00 tab PO BID 90 day, # 90 tab, 1 Refill(s), Pharmacy: [facility], 162.56, cm, 11/13/21 14:00:00 CDT, Height, 111.818, kg, 11/13/21 14:00:00 CDT, Weight primidone 2021-1 Yes See Memoria 50 mg oral 1-15 Instructio l tablet 16:45: ns, 3 tab Oscar n 00 PO BID, # 540 tab, 1 Refill(s), Pharmacy: [facility], 162.56, cm, 11/13/21 14:00:00 CDT, Height, 111.818, kg, 11/13/21 14:00:00 CDT, Weight primidone 2021-1 Yes See Memoria 50 mg oral 1-15 Instructio l tablet 16:45: ns, 3 tab Oscar n 00 PO BID, # 540 tab, 1 Refill(s), Pharmacy: [facility], 162.56, cm, 11/13/21 14:00:00 CDT, Height, 111.818, kg, 11/13/21 14:00:00 CDT, Weight primidone 2021-1 Yes See Memoria 50 mg oral 1-15 Instructio l tablet 16:45: ns, 3 tab Oscar n 00 PO BID, # 540 tab, 1 Refill(s), Pharmacy: [facility], 162.56, cm, 11/13/21 14:00:00 CDT, Height, 111.818, kg, 11/13/21 14:00:00 CDT, Weight primidone 2021-1 Yes See Memoria 50 mg oral 1-15 Instructio l tablet 16:45: ns, 3 tab Oscar n 00 PO BID, # 540 tab, 1 Refill(s), Pharmacy: [facility], 162.56, cm, 11/13/21 14:00:00 CDT, Height, 111.818, kg, 11/13/21 14:00:00 CDT, Weight hydrochloro 2021-0 Yes TAKE 1 Robert cheli thiazide-lo 8-23 TABLET BY l sartan 12.5 16:07: MOUTH ONCE [place] mg-50 mg 00 DAILY oral tablet hydrochloro 2-0 Yes TAKE 1 Robert cheli thiazide-lo 8-23 TABLET BY l sartan 12.5 16:07: MOUTH ONCE [place] mg-50 mg 00 DAILY oral tablet hydrochloro 2022-0 Yes TAKE 1 Robert cheli thiazide-lo 8-23 TABLET BY l sartan 12.5 16:07: MOUTH ONCE [place] mg-50 mg 00 DAILY oral tablet hydrochloro 2-0 Yes TAKE 1 Robert cheli thiazide-lo 8-23 TABLET BY l sartan 12.5 16:07: MOUTH ONCE [place] mg-50 mg 00 DAILY oral tablet primidone 2021-0 Yes See Memoria 50 mg oral 4-06 Instructio l tablet 17:17: ns, 3 tab Oscar n 00 PO BID, # 540 tab, 1 Refill(s), Pharmacy: [facility], 160.02, cm, 05/15/21 11:51:00 CDT, Height, 115.966, kg, 05/15/21 11:51:00 CDT, Weight primidone 2021-0 Yes See Memoria 50 mg oral 4-06 Instructio l tablet 17:17: ns, 3 tab Oscar n 00 PO BID, # 540 tab, 1 Refill(s), Pharmacy: [facility], 160.02, cm, 05/15/21 11:51:00 CDT, Height, 115.966, kg, 05/15/21 11:51:00 CDT, Weight primidone 2021-0 Yes See Memoria 50 mg oral 4-06 Instructio l tablet 17:17: ns, 3 tab Oscar n 00 PO BID, # 540 tab, 1 Refill(s), Pharmacy: [facility], 160.02, cm, 05/15/21 11:51:00 CDT, Height, 115.966, kg, 05/15/21 11:51:00 CDT, Weight primidone 2021-0 Yes See Memoria 50 mg oral 4-06 Instructio l tablet 17:17: ns, 3 tab Oscar n 00 PO BID, # 540 tab, 1 Refill(s), Pharmacy: [facility], 160.02, cm, 05/15/21 11:51:00 CDT, Height, 115.966, kg, 05/15/21 11:51:00 CDT, Weight Vitamin C 2021-0 Yes Daily, 0 Robert cheli 1-06 Refill(s) l 16:44: [place] 00 B-Complex 2021-0 Yes PO, Daily, Me moria 50 oral 1-06 0 l tablet 16:44: Refill(s) Oscar n 00 Zinc 2021-0 Yes 140 mg, Memoria 1-06 PO, Daily, l 16:44: 0 [place] 00 Refill(s) Vitamin C 2021-0 Yes Daily, 0 Robert cheli 1-06 Refill(s) l 16:44: [place] 00 B-Complex 2021-0 Yes PO, Daily, Me moria 50 oral 1-06 0 l tablet 16:44: Refill(s) Oscar n 00 Zinc 2021-0 Yes 140 mg, Memoria 1-06 PO, Daily, l 16:44: 0 [place] 00 Refill(s) Vitamin C 2021-0 Yes Daily, 0 Robert cheli 1-06 Refill(s) l 16:44: [place] 00 B-Complex 2021-0 Yes PO, Daily, Me moria 50 oral 1-06 0 l tablet 16:44: Refill(s) Oscar n 00 Zinc 2021-0 Yes 140 mg, Memoria 1-06 PO, Daily, l 16:44: 0 [place] 00 Refill(s) Vitamin C 2021-0 Yes Daily, 0 Robert cheli 1-06 Refill(s) l 16:44: [place] 00 B-Complex 2021-0 Yes PO, Daily, Me moria 50 oral 1-06 0 l tablet 16:44: Refill(s) Oscar n 00 Zinc 2021-0 Yes 140 mg, Memoria 1-06 PO, Daily, l 16:44: 0 [place] 00 Refill(s) D3 2021-0 Yes PO, Daily, Memoria 1-06 0 l 16:43: Refill(s) D3 0 Yes PO, Daily, Memoria 1-06 0 l 16:43: Refill(s) D3 0 Yes PO, Daily, Memoria 1-06 0 l 16:43: Refill(s) D3 0 Yes PO, Daily, Memoria 1-06 0 l 16:43: Refill(s) primidone 0 Yes 0 Memoria 50 mg oral 7-06 Refill(s) l tablet 15:26: atorvastati 0 Yes 0 Memori a n 40 mg 7-06 Refill(s) l oral tablet 15:26: Oscar n primidone 0 Yes 0 Memoria 50 mg oral 7-06 Refill(s) l tablet 15:26: atorvastati 0 Yes 0 Memori a n 40 mg 7-06 Refill(s) l oral tablet 15:26: Oscar n primidone 0 Yes 0 Memoria 50 mg oral 7-06 Refill(s) l tablet 15:26: atorvastati 0 Yes 0 Memori a n 40 mg 7-06 Refill(s) l oral tablet 15:26: Oscar n primidone 0 Yes 0 Memoria 50 mg oral 7-06 Refill(s) l tablet 15:26: atorvastati 0 Yes 0 Memori a n 40 mg 7-06 Refill(s) l oral tablet 15:26: Oscar n gabapentin 0 Yes = 1 tab, Mem oria 600 MG Oral 5-06 PO, BID, # l Tablet 16:04: 60 tab, 3 Oscar n 00 Refill(s), Pharmacy: [facility], 162.56, cm, 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, Height, 117.727, kg, 05/17/20 11:13:00 CDT, Weight gabapentin 0 Yes = 1 tab, Mem oria 600 MG Oral 5-06 PO, BID, # l Tablet 16:04: 60 tab, 3 Oscar n 00 Refill(s), Pharmacy: [facility], 162.56, cm, 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, Height, 117.727, kg, 05/17/20 11:13:00 CDT, Weight gabapentin 2020-0 Yes = 1 tab, Mem oria 600 MG Oral 5-06 PO, BID, # l Tablet 16:04: 60 tab, 3 Oscar n 00 Refill(s), Pharmacy: [facility], 162.56, cm, 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, Height, 117.727, kg, 05/17/20 11:13:00 CDT, Weight gabapentin 2020-0 Yes = 1 tab, Mem oria 600 MG Oral 5-06 PO, BID, # l Tablet 16:04: 60 tab, 3 Oscar n 00 Refill(s), Pharmacy: [facility], 162.56, cm, 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, Height, 117.727, kg, 05/17/20 11:13:00 CDT, Weight Cephalexin 1-0 Yes 500 mg, Robert cheli 5-06 PO, Daily, l 15:48: 0 [place] 00 Refill(s) Cephalexin 1-0 Yes 500 mg, Robert cheli 5-06 PO, Daily, l 15:48: 0 Noah 00 Refill(s) Cephalexin 1-0 Yes 500 mg, Robert cheli 5-06 PO, Daily, l 15:48: 0 [place] 00 Refill(s) Cephalexin 1-0 Yes 500 mg, Robert cheli 5-06 PO, Daily, l 15:48: 0 [place] 00 Refill(s) Diclofenac 1-0 Yes 50 mg, PO, M emoria 5-06 BID, 0 l 15:47: Refill(s) [place] 00 diclofenac 2021-0 Yes 50 mg, PO, M emoria 5-06 BID, 0 l 15:47: Refill(s) [place] 00 diclofenac 2021-0 Yes 50 mg, PO, M emoria 5-06 BID, 0 l 15:47: Refill(s) [place] 00 Diclofenac 2021-0 Yes 50 mg, PO, M emoria 5-06 BID, 0 l 15:47: Refill(s) diclofenac Yes 50 mg, PO, M emoria 5-06 BID, 0 l 15:47: Refill(s) Diclofenac Yes 50 mg, PO, M emoria 5-06 BID, 0 l 15:47: Refill(s) diclofenac Yes 50 mg, PO, M emoria 5-06 BID, 0 l 15:47: Refill(s) Diclofenac 0 Yes 50 mg, PO, M emoria 5-06 BID, 0 l 15:47: Refill(s) losartan 25 Yes 25 mg = 1 M emoria mg oral 4-08 tab, PO, l tablet 16:32: Daily, # [place] 00 90 tab, 1 Refill(s) losartan 25 Yes 25 mg = 1 M emoria mg oral 4-08 tab, PO, l tablet 16:32: Daily, # [place] 00 90 tab, 1 Refill(s) losartan Yes 25 mg = 1 M emoria mg oral 4-08 tab, PO, l tablet 16:32: Daily, # [place] 00 90 tab, 1 Refill(s) losartan 25 Yes 25 mg = 1 M emoria mg oral 4-08 tab, PO, l tablet 16:32: Daily, # [place] 00 90 tab, 1 Refill(s) Tresiba Yes 30, SUB-Q, Robert cheli FlexTouch 4-08 Daily, 0 l 16:15: Refill(s) Tresiba Yes 30, SUB-Q, Robert cheli FlexTouch 4-08 Daily, 0 l 16:15: Refill(s) Tresiba Yes 30, SUB-Q, Robert cheli FlexTouch 4-08 Daily, 0 l 16:15: Refill(s) Tresiba Yes 30, SUB-Q, Robert cheli FlexTouch 4-08 Daily, 0 l 16:15: Refill(s) gabapentin Yes = 1 tab, Mem oria 600 MG Oral 1-05 PO, TID, # l Tablet 21:54: 90 tab, 2 Oscar n 00 Refill(s), Pharmacy: [id number], 162.56, cm, 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, Height, 115.455, kg, 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, Weight primidone 2021-0 Yes 100 mg = 2 Me moria 50 mg oral 1-05 tab, PO, l tablet 21:54: BID, X 90 Osacr n 00 day, # 360 tab, 1 Refill(s), Pharmacy: [facility], 162.56, cm, 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, Height, 115.455, kg, 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, Weight gabapentin 2021-0 Yes = 1 tab, Mem oria 600 MG Oral 1-05 PO, TID, # l Tablet 21:54: 90 tab, 2 Oscar n 00 Refill(s), Pharmacy: [facility], 162.56, cm, 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, Height, 115.455, kg, 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, Weight primidone 2021-0 Yes 100 mg = 2 Me moria 50 mg oral 1-05 tab, PO, l tablet 21:54: BID, X 90 Oscar n 00 day, # 360 tab, 1 Refill(s), Pharmacy: [facility], 162.56, cm, 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455, kg, 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, Weight gabapentin 0 Yes = 1 tab, Mem oria 600 MG Oral 1-05 PO, TID, # l Tablet 21:54: 90 tab, 2 Oscar n 00 Refill(s), Pharmacy: [place] [id number], 162.56, cm, 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, Height, 115.455, kg, 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, Weight primidone 0 Yes 100 mg = 2 Me moria 50 mg oral 1-05 tab, PO, l tablet 21:54: BID, X 90 Oscar n 00 day, # 360 tab, 1 Refill(s), Pharmacy: [place] [address], 162.56, cm, 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, Height, 115.455, kg, 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, Weight primidone 2019-02 No See Memoria 50 mg oral 2-03 Instructio l tablet 23:21: ns, TAKE 1 Ally nn 00 TABLET BY MOUTH IN THE MORNING AND 2 TABLETS IN THE EVENING, # 90 tab, 1 Refill(s), Pharmacy: [place] [address], 162.56, cm, 04/27/19 11:23:00 CDT, Height, 119.091, kg, 04/27/19 11:23:00 CDT, Weight primidone 2019-02 No See Memoria 50 mg oral 2-03 Instructio l tablet 23:21: ns, TAKE 1 Ally nn 00 TABLET BY MOUTH IN THE MORNING AND 2 TABLETS IN THE EVENING, # 90 tab, 1 Refill(s), Pharmacy: [place] [address], 162.56, cm, 04/27/19 11:23:00 CDT, Height, 119.091, kg, 04/27/19 11:23:00 CDT, Weight primidone 2019-02 No See Memoria 50 mg oral 2-03 Instructio l tablet 23:21: ns, TAKE 1 Ally nn 00 TABLET BY MOUTH IN THE MORNING AND 2 TABLETS IN THE EVENING, # 90 tab, 1 Refill(s), Pharmacy: [facility], 162.56, cm, 04/27/19 11:23:00 CDT, Height, 119.091, kg, 04/27/19 11:23:00 CDT, [facility] No See Memoria 50 mg oral 2-03 Instructio l tablet 23:21: ns, TAKE 1 Ally nn 00 TABLET BY MOUTH IN THE MORNING AND 2 TABLETS IN THE EVENING, # 90 tab, 1 Refill(s), Pharmacy: [facility], 162.56, cm, 04/27/19 11:23:00 CDT, Height, 119.091, kg, 04/27/19 11:23:00 CDT, [facility] Yes See Memoria 50 mg oral 1-20 Instructio l tablet 17:15: ns, 1 tab Oscar n 07 PO qam 2 po qpm, # 90 tab, 3 Refill(s), Pharmacy: [address] 2018-02 Yes See Memoria 50 mg oral 1-20 Instructio l tablet 17:15: ns, 1 tab Oscar n 07 PO qam 2 po qpm, # 90 tab, 3 Refill(s), Pharmacy: [address] 2018-02 Yes See Memoria 50 mg oral 1-20 Instructio l tablet 17:15: ns, 1 tab Oscar n 07 PO qam 2 po qpm, # 90 tab, 3 Refill(s), Pharmacy: [address] 2018-02 Yes See Memoria 50 mg oral 1-20 Instructio l tablet 17:15: ns, 1 tab Oscar n 07 PO qam 2 po qpm, # 90 tab, 3 Refill(s), Pharmacy: [facility] [address] [place] [address] 2018-02 Yes 50 mg = 1 Mem oria 50 mg oral 0-10 tab, PO, l tablet 17:23: BID, # 60 Oscar n 00 tab, 3 Refill(s), Pharmacy: [address] 2018-02 Yes 50 mg = 1 Mem oria 50 mg oral 0-10 tab, PO, l tablet 17:23: BID, # 60 Oscar n 00 tab, 3 Refill(s), Pharmacy: [facility] primidone 2018-02 Yes 50 mg = 1 Mem oria 50 mg oral 0-10 tab, PO, l tablet 17:23: BID, # 60 Oscar n 00 tab, 3 Refill(s), Pharmacy: [facility] primidone 2018-02 Yes 50 mg = 1 Mem oria 50 mg oral 0-10 tab, PO, l tablet 17:23: BID, # 60 Oscar n 00 tab, 3 Refill(s), Pharmacy: [place] [id number] gabapentin 2017-02 Yes See Memoria 600 MG Oral 2-18 Instructio l Tablet 19:42: ns, TAKE [place] 52 ONE TABLET BY MOUTH THREE TIMES DAILY, # 90 tab, 5 Refill(s), Pharmacy: [place] [id number] gabapentin 2017-02 Yes See Memoria 600 MG Oral 2-18 Instructio l Tablet 19:42: ns, TAKE [place] 52 ONE TABLET BY MOUTH THREE TIMES DAILY, # 90 tab, 5 Refill(s), Pharmacy: [place] [id number] gabapentin 2017-02 Yes See Memoria 600 MG Oral 2-18 Instructio l Tablet 19:42: ns, TAKE [place] 52 ONE TABLET BY MOUTH THREE TIMES DAILY, # 90 tab, 5 Refill(s), Pharmacy: [place] [id number] gabapentin 2017-02 Yes See Memoria 600 MG Oral 2-18 Instructio l Tablet 19:42: ns, TAKE [place] 52 ONE TABLET BY MOUTH THREE TIMES DAILY, # 90 tab, 5 Refill(s), Pharmacy: [facility] gabapentin No See Memoria 600 MG Oral 7-13 Instructio l Tablet 22:30: ns, # 90 [place] 58 tab, Refill(s) 4, TAKE ONE TABLET BY MOUTH THREE TIMES DAILY, Pharmacy: [facility] gabapentin No See Memoria 600 MG Oral 7-13 Instructio l Tablet 22:30: ns, # 90 [place] 58 tab, Refill(s) 4, TAKE ONE TABLET BY MOUTH THREE TIMES DAILY, Pharmacy: [facility] gabapentin No See Memoria 600 MG Oral 7-13 Instructio l Tablet 22:30: ns, # 90 [place] 58 tab, Refill(s) 4, TAKE ONE TABLET BY MOUTH THREE TIMES DAILY, Pharmacy: [facility] gabapentin No See Memoria 600 MG Oral 7-13 Instructio l Tablet 22:30: ns, # 90 [place] 58 tab, Refill(s) 4, TAKE ONE TABLET BY MOUTH THREE TIMES DAILY, Pharmacy: [facility] allopurinol Yes 100 mg = 1 Memoria 100 mg oral 4-14 tab, PO, l tablet 18:38: BID, 0 [place] 00 Refill(s) aspirin Yes 0 Memoria 4-14 Refill(s) l 18:38: [place] 00 DULoxetine Yes 60 mg = 1 Me moria 60 mg oral 4-14 cap, PO, l delayed 18:38: Daily, # Oscar n release 00 30 cap, 0 capsule Refill(s) metFORMIN Yes 1,000 mg = Me moria 1000 mg 4-14 1 tab, PO, l oral tablet 18:38: BID-Meals, [place] 00 # 30 tab, 0 Refill(s) metoprolol [...] nn 00 30 tab, 0 Refill(s) hydrochloro Yes 1 tab, PO, Memoria thiazide-li 4-14 Daily, # l sinopril 18:38: 30 tab, 0 Herm promise 12.5 mg-10 00 Refill(s) mg oral tablet allopurinol Yes 100 mg = 1 Memoria 100 mg oral 4-14 tab, PO, l tablet 18:38: BID, 0 [place] 00 Refill(s) aspirin Yes 0 Memoria 4-14 Refill(s) l 18:38: [place] 00 DULoxetine Yes 60 mg = 1 Me moria 60 mg oral 4-14 cap, PO, l delayed 18:38: Daily, # Oscar n release 00 30 cap, 0 capsule Refill(s) metFORMIN Yes 1,000 mg = Me moria 1000 mg 4-14 1 tab, PO, l oral tablet 18:38: BID-Meals, [place] 00 # 30 tab, 0 Refill(s) metoprolol [...] nn 00 30 tab, 0 Refill(s) hydrochloro Yes 1 tab, PO, Memoria thiazide-li 4-14 Daily, # l sinopril 18:38: 30 tab, 0 Herm promise 12.5 mg-10 00 Refill(s) mg oral tablet allopurinol Yes 100 mg = 1 Memoria 100 mg oral 4-14 tab, PO, l tablet 18:38: BID, 0 [place] 00 Refill(s) aspirin Yes 0 Memoria 4-14 Refill(s) l 18:38: [place] 00 DULoxetine Yes 60 mg = 1 Me moria 60 mg oral 4-14 cap, PO, l delayed 18:38: Daily, # Oscar n release 00 30 cap, 0 capsule Refill(s) metFORMIN Yes 1,000 mg = Me moria 1000 mg 4-14 1 tab, PO, l oral tablet 18:38: BID-Meals, [place] 00 # 30 tab, 0 Refill(s) metoprolol [...] nn 00 30 tab, 0 Refill(s) hydrochloro Yes 1 tab, PO, Memoria thiazide-li 4-14 Daily, # l sinopril 18:38: 30 tab, 0 Herm promise 12.5 mg-10 00 Refill(s) mg oral tablet allopurinol Yes 100 mg = 1 Memoria 100 mg oral 4-14 tab, PO, l tablet 18:38: BID, 0 [place] 00 Refill(s) aspirin 2017 Yes 0 Memoria 4-14 Refill(s) l 18:38: [place] 00 DULoxetine Yes 60 mg = 1 Me moria 60 mg oral 4-14 cap, PO, l delayed 18:38: Daily, # Oscar n release 00 30 cap, 0 capsule Refill(s) metFORMIN Yes 1,000 mg = Me moria 1000 mg 4-14 1 tab, PO, l oral tablet 18:38: BID-Meals, [place] 00 # 30 tab, 0 Refill(s) metoprolol [...] nn 00 30 tab, 0 Refill(s) Singulair 2017-0 Yes 10 mg = 1 Mem oria 10 mg oral 4-14 tab, PO, l tablet 18:38: Bedtime, # Ally nn 00 30 tab, 0 Refill(s) hydrochloro 2017-0 Yes 1 tab, PO, Memoria thiazide-li 4-14 Daily, # l sinopril 18:38: 30 tab, 0 Herm promise 12.5 mg-10 00 Refill(s) mg oral tablet Vital Signs Vital Name Observation Time Observation Value Comments Source Systolic (mm Hg) 2022-05-14 19:27:00 Robert rial [place] Diastolic (mm Hg) 2022-05-14 19:27:00 Mem orial [place] Heart Rate 2022-05-14 19:27:00 [facility] [place] Height 2022-05-14 19:27:00 5 [ft_i] [facility] [place] Weight 2022-05-14 19:27:00 [facility] [place] BMI Calculated 2022-05-14 19:27:00 Memori al [place] Systolic (mm Hg) 2022-02-13 16:01:00 Robert rial [place] Diastolic (mm Hg) 2022-02-13 16:01:00 Mem orial [place] Heart Rate 2022-02-13 16:01:00 [facility] [place] Height 2022-02-13 16:01:00 5 [ft_i] [facility] [place] Weight 2022-02-13 16:01:00 [facility] [place] BMI Calculated 2022-02-13 16:01:00 Memori al [place] Systolic (mm Hg) 2021-11-13 18:41:00 Robert rial [place] Diastolic (mm Hg) 2021-11-13 18:41:00 Mem orial [place] Heart Rate 2021-11-13 18:41:00 [facility] [place] Respitory Rate 2021-11-13 18:41:00 Memori al [place] Height 2021-11-13 18:41:00 162.56 cm [facility] [place] Weight 2021-11-13 18:41:00 [facility] [place] BMI Calculated 2021-11-13 18:41:00 Memori al [place] BMI Calculated 2021-10-01 15:57:00 Memori al [place] Systolic (mm Hg) 2021-10-01 15:57:00 Robert rial [place] Diastolic (mm Hg) 2021-10-01 15:57:00 Mem orial [place] Heart Rate 2021-10-01 15:57:00 [facility] [place] Respitory Rate 2021-10-01 15:57:00 Memori al [place] Height 2021-10-01 15:57:00 160.02 cm [facility] [place] Weight 2021-10-01 15:57:00 [facility] [place] Systolic (mm Hg) 2021-05-15 16:51:00 Robert rial [place] Diastolic (mm Hg) 2021-05-15 16:51:00 Mem orial [place] Heart Rate 2021-05-15 16:51:00 [facility] [place] Respitory Rate 2021-05-15 16:51:00 Memori al [place] Height 2021-05-15 16:51:00 160.02 cm [facility] [place] Weight 2021-05-15 16:51:00 [facility] [place] BMI Calculated 2021-05-15 16:51:00 Memori al [place] Systolic (mm Hg) 2021-02-14 16:28:00 Robert rial [place] Diastolic (mm Hg) 2021-02-14 16:28:00 Mem orial [place] Heart Rate 2021-02-14 16:28:00 [facility] [place] Respitory Rate 2021-02-14 16:28:00 Memori al [place] Height 2021-02-14 16:28:00 162.56 cm [facility] [place] Weight 2021-02-14 16:28:00 [facility] [place] BMI Calculated 2021-02-14 16:28:00 Memori al [place] Systolic (mm Hg) 2020-08-14 15:13:00 Robert rial [place] Diastolic (mm Hg) 2020-08-14 15:13:00 Mem orial [place] Heart Rate 2020-08-14 15:13:00 [facility] [place] Respitory Rate 2020-08-14 15:13:00 Memori al [place] Height 2020-08-14 15:13:00 162.56 cm [facility] [place] Weight 2020-08-14 15:13:00 [facility] [place] BMI Calculated 2020-08-14 15:13:00 Memori al [place] Systolic (mm Hg) 2020-06-14 15:45:00 [facility] Diastolic (mm Hg) 2020-06-14 15:45:00 [facility] Heart Rate 2020-06-14 15:45:00 [facility] Respitory Rate 2020-06-14 15:45:00 [facility] [place] Height 2020-06-14 15:45:00 162.56 cm [facility] Weight 2020-06-14 15:45:00 [facility] BMI Calculated 2020-06-14 15:45:00 [facility] Systolic (mm Hg) 2020-05-17 16:04:00 [facility] [place] Diastolic (mm Hg) 2020-05-17 16:04:00 [facility] [place] Heart Rate 2020-05-17 16:04:00 [facility] Respitory Rate 2020-05-17 16:04:00 [facility] [place] Weight 2020-05-17 16:04:00 [facility] Systolic (mm Hg) 2020-02-14 20:47:00 [facility] [place] Diastolic (mm Hg) 2020-02-14 20:47:00 [facility] Heart Rate 2020-02-14 20:47:00 [facility] Height 2020-02-14 20:47:00 162.56 cm [facility] Weight 2020-02-14 20:47:00 [facility] BMI Calculated 2020-02-14 20:47:00 [facility] [place] Systolic (mm Hg) 2019-04-27 16:23:00 Robert [facility] [place] Diastolic (mm Hg) 2019-04-27 16:23:00 [facility] Heart Rate 2019-04-27 16:23:00 [facility] Respitory Rate 2019-04-27 16:23:00 [facility] Height 2019-04-27 16:23:00 162.56 cm [facility] [place] Weight 2019-04-27 16:23:00 [facility] BMI Calculated 2019-04-27 16:23:00 [facility] Systolic (mm Hg) 2018-12-29 16:53:00 [facility] [place] Diastolic (mm Hg) 2018-12-29 16:53:00 [facility] [place] Heart Rate 2018-12-29 16:53:00 [facility] [place] Respitory Rate 2018-12-29 16:53:00 [facility] Height 2018-12-29 16:53:00 160.02 cm [facility] Weight 2018-12-29 16:53:00 [facility] BMI Calculated 2018-12-29 16:53:00 [facility] Systolic (mm Hg) 2018-11-18 16:05:00 Robert [facility] Diastolic (mm Hg) 2018-11-18 16:05:00 [facility] [place] Heart Rate 2018-11-18 16:05:00 [facility] [place] Respitory Rate 2018-11-18 16:05:00 [facility] [place] Height 2018-11-18 16:05:00 162.56 cm [facility] Weight 2018-11-18 16:05:00 [facility] BMI Calculated 2018-11-18 16:05:00 [facility] Weight 2018-01-26 19:24:00 [facility] [place] Height 2018-01-26 19:24:00 162.56 cm [facility] BMI Calculated 2018-01-26 19:24:00 [facility] Respitory Rate 2018-01-26 19:24:00 [facility] [place] Heart Rate 2018-01-26 19:24:00 [facility] [place] Systolic (mm Hg) 2018-01-26 19:24:00 Robert rial [place] Diastolic (mm Hg) 2018-01-26 19:24:00 [facility] Procedures Procedure Date / Time Performed Performing Clinician Sourc e Colonoscopy 2016-06-25 05:00:00 [facility] Her [place] Wrist repair [facility] Hysterectomy [facility] Cholecystectomy [facility] Encounters Start End Encounter Admission Attending Care Care Encounter Source Date/Time Date/Time Type Type Clinicians Facility Department ID 2022-09-09 2022-09-09 Outpatient MHIE MHIE [id number] [facility]oria 13:15:00 13:15:00 23 l [place] 2022-09-09 2022-09-09 Outpatient MHIE MHIE [id number] [facility] 13:15:00 13:15:00 23 l [place] 2022-05-14 2022-05-15 Outpatient MHIE MNA [id number] [facility] 19:30:00 04:59:59 Neurology 22 l Nemaha [place] 2022-05-14 2022-05-15 Outpatient MHIE MNA [id number] [facility] 19:30:00 04:59:59 Neurology 22 l Nubia Zamora 2022-05-14 2022-05-14 Outpatient Rober, MHMISCHER MHMISCHER [id number] 14:30:00 23:59:59 Bigg 22 Hilario 2022-05-14 2022-05-14 Outpatient MHIE MHIE [id number] [facility] 14:30:00 14:30:00 22 ac Zamora 2022-03-18 2022-03-18 Ambulatory MHIE MNA [id number] [facility] 19:45:00 19:45:00 Pre-Reg Neurology 20 l Nubia Zamora 2022-03-18 2022-03-18 Ambulatory MHIE MNA [id number] [facility] 19:45:00 19:45:00 Pre-Reg Neurology 20 l Nubia Zamora 2022-03-18 2022-03-18 Outpatient MHIE MHIE [id number] [facility] 13:45:00 13:45:00 20 ac Zamora 2022-03-18 2022-03-18 Outpatient Rober, MHMISCHER MHMISCHER [id number] 13:45:00 13:45:00 Bigg 20 Hilario 2022-02-13 2022-02-14 Outpatient MHIE MNA [id number] [facility]oria 16:00:00 05:59:59 Neurology 21 l Nubia Zamora 2022-02-13 2022-02-14 Outpatient MHIE MNA [id number] [facility] 16:00:00 05:59:59 Neurology 21 l Nubia Zamora 2022-02-13 2022-02-13 Outpatient Rober, MHMISCHER MHMISCHER [id number] 10:00:00 23:59:59 Bigg 21 Hilario 2022-02-13 2022-02-13 Outpatient MHIE MHIE [id number] [facility] 10:00:00 10:00:00 21 ac Zamora 2021-11-13 2021-11-14 Outpatient nullFlavo MNA [id number] [facility] 18:45:00 04:59:59 r Neurology 19 l Nubia Zamora 2021-11-13 2021-11-14 Outpatient nullFlavo MNA [id number] [facility] 18:45:00 04:59:59 r Neurology 19 l Nubia Zamora 2021-11-13 2021-11-13 Outpatient Rober [facility] [id number] 13:45:00 23:59:59 Bigg 19 Hilario 2021-11-13 2021-11-13 Outpatient MHIE MHIE [id number] Memoria 13:45:00 13:45:00 19 ac Zamora 2021-10-01 2021-10-02 Outpatient nullFlavo MNA [id number] [facility] 16:00:00 04:59:59 r Neurology 18 l Nubia Zamora 2021-10-01 2021-10-02 Outpatient nullFlavo MNA [id number] [facility] 16:00:00 04:59:59 r Neurology 18 l Nubia Zamora 2021-10-01 2021-10-01 Outpatient Rober [facility] [id number] 11:00:00 23:59:59 Bigg 18 Hilario 2021-10-01 2021-10-01 Outpatient MHIE MHIE [id number] Memoria 11:00:00 11:00:00 18 ac Zamora 2021-05-15 2021 Outpatient nullFlavo MNA [id number] [facility] 16:30:00 04:59:59 r Neurology 17 l Nubia Zamora 2021-05-15 2021 Outpatient nullFlavo MNA [id number] [facility] 16:30:00 04:59:59 r Neurology 17 l Nubia Zamora 2021-05-15 2021-05-15 Outpatient Rober [facility] [id number] 11:30:00 23:59:59 Bigg 17 Hilario 2021-05-15 2021-05-15 Outpatient MHIE MHIE [id number] Memoria 11:30:00 11:30:00 17 ac Zamora 2021-02-14 2021-02-15 Outpatient nullFlavo MNA [id number] [facility] 16:30:00 05:59:59 r Neurology 16 l Nubia Zamora 2021-02-14 2021-02-15 Outpatient nullFlavo MNA [id number] [facility] 16:30:00 05:59:59 r Neurology 16 l Nubia Zamora 2021-02-14 2021-02-14 [facility] [id number] 10:30:00 23:59:59 Bigg 16 Hilario 2021-02-14 2021-02-14 Outpatient MHIE MHIE [id number] Memoria 10:30:00 10:30:00 16 ac Zamora 2020-08-14 2020-08-15 Outpatient nullFlavo MNA [id number] [facility] 15:15:00 04:59:59 r Neurology 15 l Nubia Zamora 2020-08-14 2020-08-15 Outpatient nullFlavo MNA [id number] [facility] 15:15:00 04:59:59 r Neurology 15 l Nubia Zamora 2020-08-14 2020-08-14 [facility] [id number] 10:15:00 23:59:59 Bigg 15 Hilario 2020-08-14 2020-08-14 Ambulatory nullFlavo MNA [id number] Memoria 18:00:00 18:00:00 Pre-Reg r Neurology 12 l Nubia Zamora 2020-08-14 2020-08-14 Ambulatory nullFlavo MNA [id number] [facility] 18:00:00 18:00:00 Pre-Reg r Neurology 12 l Nubia Zamora 2020-08-14 2020-08-14 Outpatient MHIE MHIE [id number] Memoria 13:00:00 13:00:00 12 ac Zamora 2020-08-14 2020-08-14 [facility] [id number] 13:00:00 13:00:00 Bigg 12 Hilario 2020-08-14 2020-08-14 Outpatient MHIE MHIE [id number] Memoria 10:15:00 10:15:00 15 ac Zamora 2020-06-14 2020-06-15 Outpatient nullFlavo MNA [id number] [facility] 15:15:00 04:59:59 r Neurology 14 l Nubia Zamora 2020-06-14 2020-06-15 Outpatient nullFlavo MNA [id number] [facility] 15:15:00 04:59:59 r Neurology 14 l Nubia Zamora 2020-06-14 2020-06-14 [facility] [id number] 10:15:00 23:59:59 Bigg 14 Hilario 2020-06-14 2020-06-14 Outpatient MHIE MHIE [id number] Memoria 10:15:00 10:15:00 14 ac Zamora 2020-05-22 2020-05-24 Outside nullFlavo MNA [id number] [facility]oria 13:42:35 04:59:59 Medical r Neurology 03 l Records Nubia Zamora 2020-05-22 2020-05-24 Outside nullFlavo MNA [id number] Memoria 13:42:35 04:59:59 Medical r Neurology 03 l Records Nubia Zamora 2020-05-22 2020-05-23 [facility] [id number] 08:42:35 23:59:59 03 2020-05-17 2020-05-18 Outpatient nullFlavo MNA [id number] [facility] 15:45:00 04:59:59 r Neurology 13 l Nubia Zamora 2020-05-17 2020-05-18 Outpatient nullFlavo MNA [id number] [facility] 15:45:00 04:59:59 r Neurology 13 l Nubia Zamora 2020-05-17 2020-05-17 [facility] [id number] 10:45:00 23:59:59 Bigg 13 Hilario 2020-05-17 2020-05-17 Outpatient MHIE MHIE [id number] Memoria 10:45:00 10:45:00 13 l Noah 2020-02-16 2020-02-18 Outside nullFlavo MNA [id number] [facility]oria 18:23:02 05:59:59 Medical r Neurology 02 l Records Nubia Zamora 2020-02-16 2020-02-18 Outside nullFlavo MNA [id number] [facility]oria 18:23:02 05:59:59 Medical r Neurology 02 l Records Nubia Noah 2020-02-16 2020-02-17 Outpatient MHMISCHER MHMISCHER [id number] 12:23:02 23:59:59 02 2020-02-14 2020-02-15 Outpatient nullFlavo MNA [id number] Mem[facility] 20:45:00 05:59:59 r Neurology 11 ac Zamora 2020-02-14 2020-02-15 Outpatient nullFlavo MNA [id number] [facility] 20:45:00 05:59:59 r Neurology 11 ac Zamora 2020-02-14 2020-02-14 [id number] 14:45:00 23:59:59 Bigg 11 Hilario 2020-02-14 2020-02-14 Ambulatory nullFlavo MNA [id number] [facility] 17:30:00 17:30:00 Pre-Reg r Neurology 10 ac Zamora 2020-02-14 2020-02-14 Ambulatory nullFlavo MNA [id number] Memoria 17:30:00 17:30:00 Pre-Reg r Neurology 10 ac Zamora 2020-02-14 2020-02-14 Outpatient MHIE MHIE [id number] Memoria 14:45:00 14:45:00 11 ac Zamora 2020-02-14 2020-02-14 [id number] 11:30:00 11:30:00 Bigg 10 Hilario 2020-01-12 2020-01-12 Outpatient MHIE MHIE [id number] Memoria 13:00:00 13:00:00 10 ac Zamora 2019-10-28 2019-10-28 Ambulatory nullFlavo MNA [id number] [facility] 15:30:00 15:30:00 Pre-Reg r Neurology 09 ac Dockeryann 2019-10-28 2019-10-28 Ambulatory nullFlavo MNA [id number] Memoria 15:30:00 15:30:00 Pre-Reg r Neurology 08 ac Zamora 2019-10-28 2019-10-28 Ambulatory nullFlavo MNA [id number] Memoria 15:30:00 15:30:00 Pre-Reg r Neurology 09 l Nubia Dockeryann 2019-10-28 2019-10-28 Ambulatory nullFlavo MNA [id number] Memoria 15:30:00 15:30:00 Pre-Reg r Neurology 08 l Nubia Zamora 2019-10-28 2019-10-28 Outpatient MHIE MHIE [id number] Memoria 10:30:00 10:30:00 09 ac Zamora 2019-10-28 2019-10-28 Outpatient MHIE MHIE [id number] Memoria 10:30:00 10:30:00 08 ac Zamora 2019-10-28 2019-10-28 [facility] [id number] 10:30:00 10:30:00 Bigg 09 Hilario 2019-10-28 2019-10-28 [facility] [id number] 10:30:00 10:30:00 Bigg 08 Hilario 2019-04-27 2019-04-28 Outpatient nullFlavo MNA [id number] [facility] 16:00:00 04:59:59 r Neurology 07 l Nubia [place] 2019-04-27 2019-04-28 Outpatient nullFlavo MNA [id number] [facility] 16:00:00 04:59:59 r Neurology 07 l Nubia [place] 2019-04-27 2019-04-27 [facility] [id number] 11:00:00 23:59:59 Bigg 07 Hilario 2019-04-27 2019-04-27 Outpatient MHIE MHIE [id number] Memoria 11:00:00 11:00:00 07 ac Noah 2018-12-29 2018-12-30 Outpatient nullFlavo MNA [id number] [facility] 17:00:00 05:59:59 r Neurology 06 l Nubia Zamora 2018-12-29 2018-12-30 Outpatient nullFlavo MNA [id number] Memoria 17:00:00 05:59:59 r Neurology 06 l Nemahamarisel Dockeryann 2018-12-29 2018-12-29 Outpatient BIANCA [facility]MISCHER MISCHER [id number] 11:00:00 23:59:59 Bigg Emy Rich 2018-12-29 2018-12-29 Outpatient MHIE MHIE [id number] Memoria 11:00:00 11:00:00 06 ac Zamora 2018-11-18 2018-11-19 Outpatient nullFlavo MNA [id number] [facility] 16:45:00 04:59:59 r Neurology 05 ac Zamora 2018-11-18 2018-11-19 Outpatient nullFlavo MNA [id number] [facility]oria 16:45:00 04:59:59 r Neurology 05 ac Zamora 2018-11-18 2018-11-18 [facility] [id number] 11:45:00 23:59:59 Bigg Yanna Rich 2018-11-18 2018-11-18 Outpatient MHIE MHIE [id number] Memoria 11:45:00 11:45:00 05 ac Zamora 2018-11-02 2018-11-02 Ambulatory nullFlavo MNA [id number] Memoria 18:15:00 18:15:00 Pre-Reg r Neurology 04 ac Zamora 2018-11-02 2018-11-02 Ambulatory nullFlavo MNA [id number] [facility]oria 18:15:00 18:15:00 Pre-Reg r Neurology 04 ac Zamora 2018-11-02 2018-11-02 [facility] [id number] 13:15:00 13:15:00 Bigg Tiffanie Rich 2018-01-26 2018-01-27 Outpatient nullFlavo MNA [id number] Memoria 19:00:00 05:59:59 r Neurology 03 ac Zamora 2018-01-26 2018-01-27 Outpatient nullFlavo MNA [id number] Memoria 19:00:00 05:59:59 r Neurology 03 ac Zamora 2018-01-26 2018-01-26 Out[facility] [id number] 13:00:00 23:59:59 Bigg Patricia Rich 2018-01-26 2018-01-26 Outpatient MHIE MHIE [id number] Memoria 13:00:00 13:00:00 03 ac Noah 2016-07-09 2016-07-09 Outpatient MHIE MHIE [id number] Memoria 16:00:00 16:00:00 02 ac Zamora 2016-07-09 2016-07-09 Outpatient MHIE MHIE [id number] Memoria 16:00:00 16:00:00 02 ac Zamora 2016-05-23 2016-05-23 [id number] Memoria 14:00:00 14:00:00 00 ac Zamora 2016-05-23 2016-05-23 Outpatient [facility] [id number] Memoria 14:00:00 14:00:00 00 ac Zamora Results This patient has no known results.
--- NOTE | 2022-07-17 19:21 | RAD REPORT ---
EXAM DESCRIPTION: US - Extremity Venous Uni Ltd - 07/17/2022 7:16 pm CLINICAL HISTORY: swelling/ weaping leg Leg swelling and edema. COMPARISON: No comparisons FINDINGS: Right lower extremity venous system was interrogated with Doppler technique. Normal flow, compressibility and augmentation was noted. There is no DVT present. IMPRESSION: No evidence of right lower extremity deep venous thrombosis.
--- NOTE | 2022-07-17 19:32 | ER ---
Nurse's Notes [facility] Name: Loulou Spencer Age: 77 yrs Sex: Female : 1945 Arrival Date: 07/17/2022 Time: 17:41 Bed 18 Private MD: Alia Medrano Diagnosis: Pedal Edema Presentation: 07/17 17:46 Chief complaint: Patient states: Pt complaining of right leg drainage X2 days. Patient cm10 has a small red area to leg. Coronavirus screen: Vaccine status: Patient reports receiving the 2nd dose of the covid vaccine. Ebola Screen: No symptoms or risks identified at this time. Initial Sepsis Screen: Does the patient meet any 2 criteria? No. Patient's initial sepsis screen is negative. Does the patient have a suspected source of infection? No. Patient's initial sepsis screen is negative. Risk Assessment: Do you want to hurt yourself or someone else? Patient reports no desire to harm self or others. Onset of symptoms was July 15, 2022. 17:46 Method Of Arrival: Wheelchair cm10 17:46 Acuity: EVY 3 cm10 Triage Assessment: 17:50 General: Appears in no apparent distress. distressed, comfortable, Behavior is calm, cm10 cooperative, appropriate for age. Pain: Denies pain. Musculoskeletal: Reports pt has a red spot to her right leg with some drainage. Historical: - Allergies: 17:49 Sulfa (Sulfonamide Antibiotics); cm10 - PMHx: 17:49 diabetes mellitus; Hypercholesterolemia; Hypertensive disorder; neuropathy; cm10 - Immunization history:: Adult Immunizations up to date, . - Social history:: Smoking status: Patient denies any tobacco usage or history of. Screenin:00 [facility] ED Fall Risk Assessment (Adult) Score/Fall Risk Level 0 - 2 = Low Risk. Abuse eh3 screen: Denies threats or abuse. Denies injuries from another. Nutritional screening: No deficits noted. Tuberculosis screening: No symptoms or risk factors identified. Assessment: 18:00 General: Appears in no apparent distress. uncomfortable, Behavior is calm, cooperative, eh3 appropriate for age. Pain: Denies pain. Neuro: Level of Consciousness is awake, alert, obeys commands, Oriented to person, place, time, situation. Cardiovascular: Capillary refill < 3 seconds Patient's skin is warm and dry. Respiratory: Airway is patent Respiratory effort is even, unlabored, Respiratory pattern is regular, symmetrical. GI: Abdomen is round non-distended. : No signs and/or symptoms were reported regarding the genitourinary system. EENT: No signs and/or symptoms were reported regarding the EENT system. Derm: Skin is pink, warm \T\ dry. Wound noted lateral aspect of right calf. Musculoskeletal: Circulation, motion, and sensation intact. 19:00 Reassessment: Patient appears in no apparent distress at this time. Patient and/or eh3 family updated on plan of care and expected duration. Pain level reassessed. Patient is alert, oriented x 3, equal unlabored respirations, skin warm/dry/pink. Vital Signs: 17:46 BP 142 / 48; Pulse 70; Resp 16; Temp 98; Pulse Ox 94% ; Weight 104.33 kg; Height 5 ft. cm10 4 in. ; Pain 0/10; 18:00 BP 154 / 58; Pulse 68; Resp 16; Pulse Ox 95% on R/A; eh3 19:00 BP 141 / 62; Pulse 66; Resp 16; Pulse Ox 95% on R/A; eh3 17:46 Body Mass Index 39.48 (104.33 kg, 162.56 cm) cm10 17:46 Pain Scale: Adult cm10 ED Course: 17:42 Patient arrived in ED. rg4 17:42 Alia Medrano MD is Private Physician. rg4 17:42 Tony Storm DO is Attending Physician. ms3 17:49 Triage completed. cm10 17:53 Arm band placed on Patient placed in an exam room, on a stretcher. cm10 18:00 Patient has correct armband on for positive identification. Bed in low position. Call eh3 light in reach. Side rails up X2. Adult w/ patient. 18:07 Montserrat Potts, KATELYN is Primary Nurse. eh3 19:18 US Extremity Venous Unilateral Ltd In Process Unspecified. EDMS 19:30 Alia Medrano MD is Referral Physician. ms3 19:32 No provider procedures requiring assistance completed. Patient did not have IV access eh3 during this emergency room visit. Administered Medications: No medications were administered Medication: 19:32 VIS not applicable for this client. eh3 Outcome: 19:31 Discharge ordered by . ms3 19:42 Discharged to home via wheelchair, with family. 3 19:42 Condition: stable 19:42 Discharge instructions given to patient, Instructed on discharge instructions, follow up and referral plans. Demonstrated understanding of instructions, follow-up care. 19:43 Patient left the ED. 3 Signatures: Dispatcher [employer] EDMS Joan Mckeon rg4 Tony Storm, DO ms3 Montserrat Potts RN RN 3 Zoie Byrd RN RN cm10 Corrections: (The following items were deleted from the chart) 17:52 17:46 Chief complaint: Patient states: Pt complaining of right leg pain X2 days. cm10 Patient has noted swelling and redness to right leg cm10
--- NOTE | 2022-07-17 19:32 | EDPHYS ---
Physician Documentation [facility] Name: Loulou Spencer Age: 77 yrs Sex: Female : 1945 Arrival Date: 07/17/2022 Time: 17:41 Bed 18 Private MD: Alia Medrano ED Physician Tony Storm HPI: 07/17 19:51 This 77 yrs old Female presents to ER via Wheelchair with complaints of Leg Pain - ms3 drainge. 19:51 77-year-old female with past medical history of diabetes, hypercholesterolemia, ms3 hypertension presents for 2 days of right leg swelling with drainage of clear fluid. Patient states the drainage has become worse. Patient denies alleviating or inciting factors. Patient states she has not previously had this occur.. Historical: - Allergies: 17:49 Sulfa (Sulfonamide Antibiotics); cm10 - PMHx: 17:49 diabetes mellitus; Hypercholesterolemia; Hypertensive disorder; neuropathy; cm10 - Immunization history:: Adult Immunizations up to date, . - Social history:: Smoking status: Patient denies any tobacco usage or history of. ROS: 19:51 Constitutional: Negative for fever, and chills. Neck: Negative for injury, pain, and ms3 swelling, Cardiovascular: Negative for chest pain, and palpitations. Respiratory: Negative for shortness of breath, cough, wheezing, and pleuritic chest pain, Abdomen/GI: Negative for abdominal pain, nausea, vomiting, diarrhea, and constipation. 19:51 MS/extremity: Positive for Right lower extremity edema. 19:51 All other systems are negative. Exam: 19:51 Constitutional: This is a well developed, well nourished patient who is awake, alert, ms3 and in no acute distress. Head/Face: Normocephalic, atraumatic. Neck: Trachea midline, no cervical lymphadenopathy. Supple, full range of motion without nuchal rigidity, or vertebral point tenderness. No Meningismus. Chest/axilla: Normal chest wall appearance and motion. Nontender with no deformity. Cardiovascular: Regular rate and rhythm with a normal S1 and S2. No gallops, murmurs, or rubs. Normal PMI, no JVD. No pulse deficits. Respiratory: Lungs have equal breath sounds bilaterally, clear to auscultation and percussion. No rales, rhonchi or wheezes noted. No increased work of breathing, no retractions or nasal flaring. Abdomen/GI: Soft, non-tender, with normal bowel sounds. No distension or tympany. No guarding or rebound. No evidence of tenderness throughout. 19:51 Musculoskeletal/extremity: Extremities: noted in the right leg: swelling. Vital Signs: 17:46 BP 142 / 48; Pulse 70; Resp 16; Temp 98; Pulse Ox 94% ; Weight 104.33 kg; Height 5 ft. cm10 4 in. ; Pain 0/10; 18:00 BP 154 / 58; Pulse 68; Resp 16; Pulse Ox 95% on R/A; eh3 19:00 BP 141 / 62; Pulse 66; Resp 16; Pulse Ox 95% on R/A; eh3 17:46 Body Mass Index 39.48 (104.33 kg, 162.56 cm) cm10 17:46 Pain Scale: Adult cm10 MDM: 17:55 Patient medically screened. ms3 19:51 Differential diagnosis: Venous insufficiency versus DVT versus pedal edema. Data ms3 reviewed: vital signs, nurses notes, and as a result, I will discharge patient. Counseling: I had a detailed discussion with the patient and/or guardian regarding: the historical points, exam findings, and any diagnostic results supporting the discharge/admit diagnosis, radiology results, the need for outpatient follow up, to return to the emergency department if symptoms worsen or persist or if there are any questions or concerns that arise at home. Special discussion: I discussed with the patient/guardian in detail that at this point there is no indication for admission to the hospital. It is understood, however, that if the symptoms persist or worsen the patient needs to return immediately for re-evaluation. ED course: Discussed negative venous ultrasound with patient. Patient to follow-up with primary care physician in 2 to 3 days. Patient understands and agrees with plan. All questions were answered. Return precautions discussed include worsening symptoms, or any other concerns.. 07/17 17:56 Order name: US Extremity Venous Unilateral Ltd; Complete Time: 19:24 ms3 Administered Medications: No medications were administered Disposition Summary: 07/17/22 19:31 Discharge Ordered Location: Home ms3 Condition: Fair ms3 Diagnosis - Pedal Edema ms3 Followup: ms3 - With: Alia Medrano MD - When: 2 - 3 days - Reason: Recheck today's complaints Discharge Instructions: - Discharge Summary Sheet ms3 - Peripheral Edema ms3 Forms: - Medication Reconciliation Form ms3 - Thank You Letter ms3 - Antibiotic Education ms3 - Prescription Opioid Use ms3 Signatures: Dispatcher [employer] EDTony Wilson DO DO ms3 Zoie Byrd, RN RN cm10
[2022-07-17 20:38] VITALS: TEMP 98
[2022-07-17 20:39] VITALS: O2SAT 95
[2022-07-17 20:41] VITALS: BP 141/62
== END 2022-07-17 19:43 | disposition home or self-care (01) ==
LOC: ER 17:41
DX: R60.9 Edema, unspecified (principal); E11.9 Type 2 diabetes mellitus without complications; I10 Essential (primary) hypertension; Z88.2 Allergy status to sulfonamides
CPT/HCPCS: 93971; 99283